=== PATIENT | male | born 1950 | race Caucasian/White ===

== ENCOUNTER 2018-06-04 17:03 | Inpatient (IN) ==
[2018-06-04] MEDS ORDERED: Sod Chloride 0.9% Inj 1,000 ML IV.CONT SCH (17:45)
--- NOTE | 2018-06-04 17:53 | ED ---
HPI General Chief Complaint: Fall Stated Complaint: Medical Time Seen by Provider: 06/04/18 17:14 Source: patient and EMS Mode of arrival: EMS Limitations: altered mental status History of Present Illness HPI Narrative: 68-year-old male complains a headache, facial. Patient had a syncopal episode and fell this afternoon. Patient was seen at [facility] in [place]. CT scan of the brain done at 1424 today shows small left temporal parietal subdural hematoma as well as multiple small hemorrhagic contusions involving the right frontal lobe. CT scan facial bones done today at 1427 shows no evidence of facial bone fracture. CT scan cervical spine done today at 1429 shows DJD changes. No acute fracture. Trauma surgeon was contacted [facility] patient was accepted to be transferred in [place] to [facility] for further treatment. Patient has history of hypertension , atrial fibrillation, CAD, CVA TIA stroke, diabetes, GERD, glaucoma, hyperlipidemia, MRSA, PAD, seizure, sleep apnea. Patient is on Pradaxa. Last dose of Pradaxa was this morning. Medical transfer note did not dictate the patient was treated for high blood pressure or Pradaxa reversal before transfer. complaint: fall Onset (ago): hour(s) Fall from: standing Fall witnessed: yes, by bystander Place fall occurred: home Loss of consciousness: yes Prolonged down time: no Symptoms prior to fall: none Location of injury: head and face Severity: moderate Quality: sharp Associated symptoms (after fall): headache Related Data Allergies Allergy/AdvReac Type Severity Reaction Status Date / Time No Known Allergies Allergy Verified 06/04/18 17:28 Review of Systems ROS: all other systems reviewed are negative [facility] Medical History Medical History Afib (Acute) Arthritis (Acute) Barretts esophagus (Acute) CAD (coronary artery disease) (Acute) CVA (cerebral vascular accident) (Acute) Chronic GERD (Acute) Chronic back pain (Acute) Depression (Acute) Diabetes (Acute) Glaucoma (Acute) Hyperlipemia (Acute) MRSA (methicillin resistant Staphylococcus aureus) (Acute) PAD (peripheral artery disease) (Acute) Seizure (Acute) Sleep apnea (Acute) Surgical History Surgical History H/O vascular surgery (Acute) History of esophagogastroduodenoscopy (EGD) (Acute) Social History Social History Substance History: No History of Abuse Second Hand Smoke Exposure: No Smoking Status: Former smoker Tobacco Type: Cigarettes How Often Do You Have a Drink Containing Alcohol: Never Recent Travel in [facility] within the Last 8 Weeks: No Recent Out of Country Travel within the Last 8 Weeks: No Immunization History Tetanus Immunization: Unable to Assess Hx Influenza Vaccine This Season: No Exam Narrative Exam Narrative: GENERAL: Well-nourished, well-developed patient. SKIN: Focused skin assessment warm/dry. HEAD: Normocephalic. Patient has a small area soft tissue defect laceration right temporal area frontal area. Soft tissue swelling ecchymosis right temporal and right forehead area. Mild ecchymosis tenderness over the nose. No active nose bleeding. EYES: No scleral icterus. No injection or drainage. NECK: Supple, trachea midline. No JVD or lymphadenopathy. CARDIOVASCULAR: Regular rate and rhythm without murmurs, gallops, or rubs. RESPIRATORY: Breath sounds equal bilaterally. No accessory muscle use. GASTROINTESTINAL: Abdomen soft, non-tender, nondistended. MUSCULOSKELETAL: No cyanosis, or edema. BACK: Nontender without obvious deformity. No CVA tenderness. Neurologic exam: Patient is awake and alert oriented 3. No obvious focal neurological deficit. Course Initial Documented Vital Signs Temperature 98 F 06/04/18 17:16 Pulse Rate 59 L 06/04/18 17:16 Respiratory Rate 18 06/04/18 17:16 Blood Pressure 217/98 H 06/04/18 17:16 Pulse Oximetry 98 06/04/18 17:16 Last Documented Vital Signs Temperature 98 F 06/04/18 17:16 Pulse Rate 59 L 06/04/18 17:16 Respiratory Rate 18 06/04/18 17:16 Blood Pressure 217/98 H 06/04/18 17:16 Pulse Oximetry 98 06/04/18 17:16 Medical Decision Making MDM Narrative Medical decision making narrative: 68-year-old male with intracranial hemorrhage from a fall today. Patient is on Pradaxa for history of TIA CVA in the past. Patient had CT scan of the brain done which show intracranial hemorrhage. Patient with transferred to [facility] for further treatment. The transfer was accepted by trauma surgeon Dr. Talavera. Upon arrival patient is hypotensive. Pradaxa reversal medication and Cardene drip ordered. Patient will be admitted to [facility]. Medical Screen Exam Complete: Yes Emergency Medical Condition: Yes Discharge Plan Discharge Disposition Patient Disposition: 30 Still Patient Discharge Details Diagnosis: Intracranial hemorrhage, Blunt trauma of face, Hypertension, uncontrolled Physicians Team ED Provider: Trenton Kim Primary Care Provider: UNKNOWN, Status ED Status: With Doctor
--- NOTE | 2018-06-04 17:58 | XR ---
EXAM DATE: 06/04/2018 5:53 PM EDT AGE/SEX: 68 years / Male INDICATIONS: Shortness of breath. CLINICAL DATA: This is the patient's initial encounter. Patient reports that signs and symptoms have been present for 1 day and indicates a pain score of 0/10. MEDICAL/SURGICAL HISTORY: . Unobtainable. . Unobtainable. COMPARISON: No prior exams available for comparison. FINDINGS: A single AP semierect portable view the chest was obtained and demonstrates mild cardiomegaly. Mild s treaky perihilar opacities are present with no focal consolidation or effusion. The bony thorax is in tact in appearance. There are overlying electrocardiogram leads. A equipment monitor phototypesetting device is projecte d in the left side of the chest. CONCLUSION: Mild cardiomegaly and mild streaky perihilar opacities which could represent possible early pulmonary edema. Electronically signed by: Jonh Cristobal MD 06/04/2018 5:57 PM EDT
--- NOTE | 2018-06-04 18:18 | CT ---
EXAM DATE: 06/04/2018 6:10 PM EDT AGE/SEX: 68 years / Male INDICATIONS: Fell, laceration right head. CLINICAL DATA: This is the patient's initial encounter. Patient reports that signs and symptoms have been present for 1 day and indicates a pain score of 5/10. MEDICAL/SURGICAL HISTORY: Cardiovascular disease. Cerebrovascular disease. Diabetes. . vascular s urgery RADIATION DOSE: 42.29 CTDI (mGy) COMPARISON: No prior exams available for comparison. TECHNIQUE: CT of the head without contrast. Using automated exposure control and adjustment of the mA and/or kV according to patient size, radiation dose was kept as low as reasonably achievable to ob tain optimal diagnostic quality images. DICOM format image data is available electronically for revi ew and comparison. FINDINGS: Cerebrum: The ventricles are normal for age. No evidence of midline shift or mass effect. There are several small punctate areas of high density hemorrhage in the right frontal lobe. The largest measu res approximately 6 mm in size. There is a small left subdural hematoma along the left parietal lobe measuring up to approximately 4 mm in diameter. There is a focal area of encephalomalacia involving t he right occipital lobe. There are additional areas of decreased ventilation involving the lower occi pital lobes bilaterally. Posterior Fossa: The cerebellum and brainstem are intact. The 4th ventricle is midline. The cerebe llopontine angle is unremarkable. Extracranial: The visualized portion of the orbits is intact. Skull: The calvaria is intact. No evidence of skull fracture. CONCLUSION: 1. Multiple small punctate areas of intraparenchymal hemorrhage in the high right frontal lobe. 2. Small left subdural hematoma along the left parietal lobe. 3. Old area of encephalomalacia involving the right occipital lobe as well as additional areas of de creased attenuation involving the lower occipital lobes. This likely is due to remote infarction. . Electronically signed by: Jonh Cristobal MD 06/04/2018 6:17 PM EDT
[2018-06-04] MEDS: niCARdipine Inj 25 MG in Sodium Chlor 0.9% Inj 240 ML IV.CONT PRN ×2 (18:22→22:57)
[2018-06-04] MEDS: IDARUCIZUMAB IV.SIG SCH ×2 (18:22→18:44)
[2018-06-04] MEDS ORDERED: Morphine Inj 4 MG/ML Vial IV.PUSH PRN (18:37)
--- NOTE | 2018-06-04 19:06 | MH ---
cc: Ta Talavera MD DATE OF ADMISSION: 06/04/2018 HISTORY OF PRESENT ILLNESS: This is a 68-year-old male who had a syncopal event, falling onto his face. He was taken to [facility] where he was evaluated and found to have a subdural hematoma. Trauma service was requested for transfer. The patient has a history of prior falls. He has had a stroke in the past and he is on Pradaxa. 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 Now, the patient complains of left eye blindness. He denies headache. He denies chest pain. He denies shortness of breath. He denies any numbness or tingling. The patient's CAT scan from outside revealed a subdural hematoma. Cervical spine CT was negative for fracture. PAST MEDICAL HISTORY: The patient has multiple medical problems including the above as well as coronary artery disease, type 2 diabetes, hyperlipidemia, atrial fibrillation. ALLERGIES: THE PATIENT HAS NO KNOWN DRUG ALLERGIES. MEDICATIONS: Multiple medications that can be obtained from the medical records. SOCIAL HISTORY: History of smoking. He does not currently smoke. No alcohol use. PHYSICAL EXAMINATION: GENERAL: The patient is lying in a stretcher, in no acute distress. HEENT: His pupils are full, equal and reactive. He has an abrasion to his right forehead. NECK: Nontender. Trachea is midline. No JVD. RESPIRATIONS: Clear. CARDIOVASCULAR: Regular. GASTROINTESTINAL: Soft, obese, nondistended. MUSCULOSKELETAL: No deformities. NEUROLOGIC: Nonfocal. BACK: No step-offs. IMAGING DATA: Repeat head CT shows multiple small punctate areas of intraparenchymal hemorrhage, small left subdural hematoma. ASSESSMENT AND PLAN: This is a patient status post fall with a traumatic brain injury on blood thinners. The patient is being admitted to [facility]. Neurosurgery has been consulted. The patient has been started on antihypertensives. Reversal for anticoagulation started. We will monitor neurological status as well as hemodynamics. MD MALISSA Thompson/jeramy , 06:49 PM , 06:56 PM
[2018-06-04 19:09] LABS: Baso % (Auto) 0.3 % (0.0-2.0); Eos # (Auto) 0.1 th/mm3 (0.0-0.4); Eos % (Auto) 0.8 % (0.0-4.0); Hematocrit 37.7 % (39.0-51.0); Hemoglobin 12.3 gm/dL (13.0-17.0); Lymph # (Auto) 0.5 th/mm3 (1.0-4.8); Lymph % (Auto) 6.7 % (9.0-44.0); Mean Corpuscular HGB Conc 32.6 % (32.0-36.0); Mean Platelet Volume 8.7 fL (7.0-11.0); Mono # (Auto) 0.4 th/mm3 (0.0-0.9); Mono % (Auto) 5.5 % (0.0-8.0); Neut # (Auto) 6.7 th/mm3 (1.8-7.7); Neut % (Auto) 86.7 % (16.0-70.0); Platelet Count 212 th/mm3 (150-450); Red Cell Distribution Width 15.6 % (11.6-17.2); White Blood Count 7.7 th/mm3 (4.0-11.0)
[2018-06-04 19:21] LABS: Activated Partial Thrombo Time 25.7 sec (24.3-30.1); INR 1.1 Ratio; Prothrombin Time 10.7 sec (9.8-11.6)
[2018-06-04 19:30] LABS: Albumin 3.1 g/dL (3.4-5.0); Anion Gap 8 meq/L (5-15); Aspartate Aminotransferase 13 U/L (15-37); Blood Urea Nitrogen 19 mg/dL (7-18); Calcium 8.5 mg/dL (8.5-10.1); Carbon Dioxide 22.4 meq/L (21.0-32.0); Chloride 114 meq/L (98-107); Glomerular Filtration Rate 52 mL/min (>89); Glucose,Random 57 mg/dL (74-106); Potassium 4.2 meq/L (3.5-5.1); Sodium 144 meq/L (136-145)
[2018-06-04 19:31] LABS: Alanine Aminotransferase 9 U/L (12-78)
[2018-06-04 19:33] LABS: Alkaline Phosphatase 74 U/L (45-117); Total Protein 7.7 g/dL (6.4-8.2)
--- NOTE | 2018-06-04 19:53 | P.CONNS ---
History of Present Illness Service: neurosurgery Consult date: 06/04/18 Reason for Consult: SDH Primary Care Provider: UNKNOWN Chief Complaint: headache History of Present Illness: 68 yo M with MMP (Afib, CAD, CVA, TIA on pradaxa, DM, HL, PAD) who presented to [facility] s/p syncopal event. Due to patients confusion, details obtained from chart review and report from OSH. Due to antiplatelet agent, patients agitation, and MOA, a head CT was obtained which demonstrated IPH/ contusion and SDH prompting transfer to [facility]. On arrival to [facility], patient was noted to have SBP >200's and therefore started on a nicardipine infusion. Patient also received pradaxa reversal agent. Patient is agitated and does not respond appropriately to questions. [facility] - History History Provided By: Patient - Medical History Medical History: Medical History (Last Reviewed 06/04/18 @ 17:48 by Trenton Kim MD) Afib Arthritis Barretts esophagus CAD (coronary artery disease) CVA (cerebral vascular accident) Chronic GERD Chronic back pain Depression Diabetes Glaucoma Hyperlipemia MRSA (methicillin resistant Staphylococcus aureus) PAD (peripheral artery disease) Seizure Sleep apnea - Surgical History Surgical History: Surgical History (Last Reviewed 06/04/18 @ 17:48 by Trenton Kim MD) H/O vascular surgery History of esophagogastroduodenoscopy (EGD) - Tobacco History Second Hand Smoke Exposure: No Tobacco Use In Past 30 Days: No Smoking Status: Former smoker Tobacco Type: Cigarettes - Alcohol History How Often Do You Have a Drink Containing Alcohol: Never - Substance Use History Substance History: No History of Abuse - Travel History Recent Travel in the [place] Within the Last 8 Weeks: No Recent Travel Out of the Country Within the Last 8 Weeks: No - Immunization History Tetanus Immunization: Unable to Assess Hx Influenza Vaccine This Season: No Medications and Allergies Active Medications: Active Medications Al Hydroxide/Mg Hydroxide (Milk Of Magnesia Liq) 30 ml PO Q6H PRN PRN Reason: CONSTIPATION Chlorhexidine Gluconate (Chlorhexidine 2% Cloth) 3 pack TOPICAL DAILY@0400 CAROLYNN Stop: 06/10/18 03:59 Chlorhexidine Gluconate (Chlorhexidine 2% Cloth) 3 pack TOPICAL DAILY@0400 PRN PRN Reason: Extra cloth needed Stop: 06/10/18 03:59 Docusate Sodium (Colace) 100 mg PO BID CAROLYNN Enalaprilat (Vasotec Inj) 1.25 mg IV.PUSH Q8H PRN PRN Reason: Blood pressure 180/95 Nicardipine HCl 25 mg/ Sodium (Chloride) 250 mls @ 50 mls/hr IV.CONT TITRATE PRN; Protocol PRN Reason: Per Protocol Last Admin: 06/04/18 18:22 Dose: 5 mg/hr, 50 mls/hr Sodium Chloride (Ns Inj) 1,000 mls @ 100 mls/hr IV.CONT .Q10H CAROLYNN Morphine Sulfate (Morphine Inj) 2 mg IV.PUSH Q1H PRN PRN Reason: Break through pain Ondansetron HCl (Zofran Inj) 4 mg IV.PUSH Q6H PRN PRN Reason: NAUSEA OR VOMITING Pantoprazole Sodium (Protonix Inj) 40 mg IV.PUSH Q24H CAROLYNN Sodium Chloride (Ns Flush) 2 ml IV.FLUSH UNSCH PRN PRN Reason: FLUSH AFTER USING IV ACCESS Allergies Allergy/AdvReac Type Severity Reaction Status Date / Time No Known Allergies Allergy Verified 06/04/18 17:28 Exam Vital signs: Vital Signs 06/04/18 17:16 06/04/18 18:29 06/04/18 18:36 Temperature 98 F Pulse Rate 59 L 67 66 Respiratory Rate 18 18 18 Blood Pressure 217/98 H 230/91 H 167/88 H Pulse Oximetry 98 98 06/04/18 18:48 06/04/18 18:59 Temperature Pulse Rate 65 69 Respiratory Rate 18 18 Blood Pressure 155/74 H 158/74 H Pulse Oximetry Intake & Output 06/04/18 06/04/18 06/05/18 06:59 18:59 06:59 Weight 117.9 kg Narrative: E4 bright agitated AO x self only confused Follows commands in all extremities 5/5 strength in the upper and lower extremities 2/4 reflexes throughout sensation intact Results - Laboratory Findings CBC and BMP: 06/04/18 18:03 06/04/18 18:03 Abnormal lab findings: Abnormal Labs 06/04/18 06/04/18 18:03 18:03 RBC 4.10 L Hgb 12.3 L Hct 37.7 L Neut % (Auto) 86.7 H Lymph % (Auto) 6.7 L Lymph # (Auto) 0.5 L Chloride 114 H BUN 19 H Creatinine 1.36 H Estimated GFR 52 L Random Glucose 57 L AST 13 L ALT 9 L Albumin 3.1 L Assessment and Plan - Plan Imaging: Ct head consistent with left sided small 5 mm acute SDH with multiple small foci of intraparenchymal hemorrhage/contusions mostly to the right frontal lobe A/P: 68 yo M on pradaxa s/p fall with IPH/contusions/SDH. Pradaxa reversed -no acute neurosurgical intervention at this time -recommend q1 hr neuro checks with close monitoring -Keppra for 7 days for seizure prophylaxis -Would obtain am head CT to evaluate for evolution -syncope workup
--- NOTE | 2018-06-04 21:16 | P.PNCC ---
Subjective Brief History: History of Present Illness HPI Narrative: 68-year-old male complains a headache, facial. Patient had a syncopal episode and fell this afternoon. Patient was seen at [facility] in [place]. CT scan of the brain done this afternoon shows small left temporal parietal subdural hematoma as well as multiple small hemorrhagic contusions involving the right frontal lobe. CT scan facial bones done today shows no evidence of facial bone fracture. Request was made to transfer patient to our institution and it was readily accepted. Patient arrives awake alert but somewhat confused and disoriented motorically fully intact Patient is on Pradaxa for atrial fibrillation he was immediately given Praxbind , for reversal In addition patient is significantly hypertensive and he has been started on nicardipine drip and restarted on carvedilol and levodopa Will have repeat CT scan tomorrow and also cardiac evaluation and carotid ultrasound Past medical history is that of Coronary artery disease Chronic atrial fibrillation controlled and on anticoagulants Hypertension Past myocardial infarction Diabetes mellitus Previous CVA and syncopal episodes History of renal insufficiency Markham's esophagus Objective Vital Signs / I&O: Vital Signs 06/04/18 17:16 06/04/18 18:29 06/04/18 18:36 Temperature 98 F Pulse Rate 59 L 67 66 Respiratory Rate 18 18 18 Blood Pressure 217/98 H 230/91 H 167/88 H Pulse Oximetry 98 98 06/04/18 18:48 06/04/18 18:59 06/04/18 20:00 Temperature Pulse Rate 65 69 Respiratory Rate 18 18 Blood Pressure 155/74 H 158/74 H Pulse Oximetry 98 Intake & Output 06/04/18 06/04/18 06/05/18 06:59 18:59 06:59 Weight 117.9 kg Result Diagrams: 06/04/18 18:03 06/04/18 18:03 Imaging: Impressions Chest X-Ray 06/04/18 17:33 CONCLUSION: Mild cardiomegaly and mild streaky perihilar opacities which could represent possible early pulmonary edema. Head CT 06/04/18 17:33 CONCLUSION: 1. Multiple small punctate areas of intraparenchymal hemorrhage in the high right frontal lobe. 2. Small left subdural hematoma along the left parietal lobe. 3. Old area of encephalomalacia involving the right occipital lobe as well as additional areas of decreased attenuation involving the lower occipital lobes. This likely is due to remote infarction. .
[2018-06-04] MEDS: Docusate Sodium 100 MG Capsule PO SCH (21:25)
[2018-06-04] MEDS: Pantoprazole Inj 40 MG Vial IV.PUSH SCH (21:34)
[2018-06-04] MEDS: Sod Chloride 0.9% Inj 1,000 ML IV.CONT SCH (21:34)
--- NOTE | 2018-06-04 22:37 | US ---
EXAM DATE: 06/04/2018 10:32 PM EDT AGE/SEX: 68 years / Male INDICATIONS: Syncope. CLINICAL DATA: This is the patient's initial encounter. Patient reports that signs and symptoms have been present for 1 day and indicates a pain score of 0/10. MEDICAL/SURGICAL HISTORY: Gastroesophageal reflux disease. Diabetes. Atrial fibrillation. Arth ritis. Coronary artery disease. Cerebral vascular accident. Hyperlipidemia. MRSA. Peripheral artery d isease. Seizure. Sleep apnea. . Vascular surgery. Esophagogastroduodenoscopy. COMPARISON: No prior exams available for comparison. VELOCITY PARAMETERS: ICA/CCA Ratio: Right 1.7 , Left 1.1 ICA: Right 98 cm/sec, Left 83 cm/sec CCA: Right 57 cm/sec, Left 78 cm/sec ECA: Right 86 cm/sec, Left 91 cm/sec Vertebral: Right Not visualized. cm/sec absent, Left 60 cm/sec antegrade FINDINGS: Sedation was suboptimal secondary to the patient's body habitus. The right vertebral arter y could not be visualized. Right Carotid: Mild arteriosclerotic plaque is visualized.The waveforms are within normal limits. Left Carotid: Moderate arteriosclerotic plaque is visualized. The waveforms are within normal limits . Other: The right vertebral artery could not be visualized. CONCLUSION: 1. Right Internal Carotid Artery: Mild atherosclerotic plaque with less than 50% diameter stenosis. 2. Left Internal Carotid Artery: Mild atherosclerotic plaque with less than diameter stenosis. 3. Nonvisualization of the right vertebral artery. Occlusion is not excluded. Electronically signed by: Jonh Cristobal MD 06/04/2018 10:36 PM EDT
[2018-06-05] MEDS: niCARdipine Inj 25 MG in Sodium Chlor 0.9% Inj 240 ML IV.CONT PRN ×5 (03:24→22:57)
[2018-06-05] MEDS: Chlorhexidine Gluconate 2% 1 Pack (2 Cloths) TOPICAL SCH (03:54)
[2018-06-05] MEDS ORDERED: Chlorhexidine Gluconate 2% 1 Pack (2 Cloths) TOPICAL PRN (04:00)
[2018-06-05 04:54] LABS: Baso % (Auto) 0.3 % (0.0-2.0); Eos % (Auto) 0.2 % (0.0-4.0); Hematocrit 37.8 % (39.0-51.0); Hemoglobin 12.3 gm/dL (13.0-17.0); Lymph # (Auto) 0.7 th/mm3 (1.0-4.8); Lymph % (Auto) 8.2 % (9.0-44.0); Mean Corpuscular HGB Conc 32.7 % (32.0-36.0); Mean Corpuscular Hemoglobin 29.8 pg (27.0-34.0); Mean Corpuscular Volume 91.4 fL (80.0-100.0); Mean Platelet Volume 8.4 fL (7.0-11.0); Mono # (Auto) 0.5 th/mm3 (0.0-0.9); Mono % (Auto) 5.6 % (0.0-8.0); Neut # (Auto) 7.1 th/mm3 (1.8-7.7); Neut % (Auto) 85.7 % (16.0-70.0); Platelet Count 194 th/mm3 (150-450); Red Blood Count 4.13 mil/mm3 (4.50-5.90); Red Cell Distribution Width 15.4 % (11.6-17.2); White Blood Count 8.3 th/mm3 (4.0-11.0)
[2018-06-05 05:21] LABS: Alanine Aminotransferase 12 U/L (12-78); Alkaline Phosphatase 77 U/L (45-117); Anion Gap 12 meq/L (5-15); Aspartate Aminotransferase 13 U/L (15-37); Blood Urea Nitrogen 20 mg/dL (7-18); Calcium 8.2 mg/dL (8.5-10.1); Carbon Dioxide 18.3 meq/L (21.0-32.0); Chloride 113 meq/L (98-107); Glomerular Filtration Rate 56 mL/min (>89); Glucose,Random 190 mg/dL (74-106); Potassium 3.6 meq/L (3.5-5.1); Sodium 143 meq/L (136-145); Total Protein 7.6 g/dL (6.4-8.2)
[2018-06-05] MEDS ORDERED: Dextrose 50% in Water 50 ML Vial IV.PUSH PRN (07:24)
[2018-06-05] MEDS: Sod Chloride 0.9% Inj 1,000 ML IV.CONT SCH ×2 (08:02→17:47)
--- NOTE | 2018-06-05 08:31 | P.PNNS ---
Subjective Interval history: patient confused. does not report any issues Physical Exam Vital signs: Vital Signs 06/04/18 17:16 06/04/18 18:29 06/04/18 18:36 Temperature 98 F Pulse Rate 59 L 67 66 Respiratory Rate 18 18 18 Blood Pressure 217/98 H 230/91 H 167/88 H Pulse Oximetry 98 98 06/04/18 18:48 06/04/18 18:59 06/04/18 20:00 Temperature Pulse Rate 65 69 Respiratory Rate 18 18 Blood Pressure 155/74 H 158/74 H Pulse Oximetry 98 06/04/18 21:00 06/04/18 22:00 06/04/18 23:00 Temperature 98.1 F 98.2 F 98.2 F Pulse Rate 73 73 74 Respiratory Rate 16 17 17 Blood Pressure 194/89 H 145/70 H 173/79 H Pulse Oximetry 06/05/18 00:00 06/05/18 04:00 Temperature 98.3 F 98.4 F Pulse Rate 73 75 Respiratory Rate 18 19 Blood Pressure 150/70 H 157/74 H Pulse Oximetry Intake & Output 06/04/18 06/05/18 06/05/18 18:59 06:59 18:59 Intake Total 605 / 605 1250 / 1250 Output Total 925 / 925 Balance -320 / -320 1250 / 1250 Weight 117.9 kg 121.4 kg Intake: IV 605 / 605 1250 / 1250 NS Inj 1,000 ML @ 100 mls/hr IV 1000 / 1000 .CONT .Q10H CAROLYNN Rx#:[id number] Cardene Inj 25 MG In NS Inj 240 500 / 500 250 / 250 ML @ 5 MG/HR 50 mls/hr IV.CONT TITRATE PRN Rx#:[id number] Keppra Inj 500 MG In NS Inj 100 105 / 105 ML @ 400 mls/hr IV.SIG Q12H CAROLYNN Rx#:[id number] Output: Urine Amount (Catheter) 925 / 925 Indwelling Urethral Catheter 925 / 925 Other: Weight On Admission 117.9 kg Narrative: E4 confused AOx hospital only FC x4 5/5 strength throughout unable to test drift - Urinary Catheter Management Indwelling Urethral Catheter Cath placed during this visit: no Assessment and Plan - Plan Imaging: Ct head consistent with left sided small 5 mm acute SDH with multiple small foci of intraparenchymal hemorrhage/contusions mostly to the right frontal lobe A/P: 68 yo M on pradaxa s/p fall with IPH/contusions/SDH -pradaxa reversed -no acute neurosurgical intervention at this time -recommend q1 hr neuro checks with close monitoring -Keppra for 7 days for seizure prophylaxis -pending am head CT to evaluate for evolution -syncope workup
--- NOTE | 2018-06-05 10:03 | CT ---
EXAM DATE: 06/05/2018 9:53 AM EDT AGE/SEX: 68 years / Male INDICATIONS: Follow up head trauma, intracranial hemorrhage. CLINICAL DATA: This is the patient's subsequent encounter. Patient reports that signs and symptoms h ave been present for 2 days and indicates a pain score of Nonresponsive. MEDICAL/SURGICAL HISTORY: Hypertension. Gastroesophageal reflux disease. Cardiovascular disease. Seizures, arthritis, diabetes. None. RADIATION DOSE: 56.35 CTDI (mGy) COMPARISON: [place], CT HEAD W/O CONTRAST, 06/04/2018. . TECHNIQUE: CT of the head without contrast. Using automated exposure control and adjustment of the mA and/or kV according to patient size, radiation dose was kept as low as reasonably achievable to ob tain optimal diagnostic quality images. DICOM format image data is available electronically for revi ew and comparison. FINDINGS: Cerebrum: Numerous small hemorrhages along the mcnally-white junction of the right frontal and parietal lobes are slightly larger and more conspicuous in appearance. There is no significant increase in ma ss effect or edema. Small left-sided subdural hematoma along the frontal and temporal lobes is again noted. Significant decrease in hyperdensity of the collection is noted. There is no evidence of incre asing size or mass effect. Midline structures remain well preserved. Bilateral occipital encephalomalacia is again noted. Posterior Fossa: Old right cerebellar infarct is identified. Brainstem and cerebellum are otherwise stable. Extracranial: The visualized portion of the orbits is intact. Skull: The calvaria is intact. No evidence of skull fracture. CONCLUSION: 1. Increasing conspicuity and size of multiple small hemorrhages along the mcnally-white junction of th e right frontal and parietal lobes without evidence of increasing mass effect or edema. Findings are characteristic of white matter shear injury. 2. Decreasing density of small left cerebral subdural hematoma which is otherwise stable without tracey dence of interval enlargement or mass effect. 3. Stable old bilateral occipital infarcts and right cerebellar infarct. . Electronically signed by: Uli Jaime MD 06/05/2018 10:01 AM EDT
[2018-06-05] MEDS: Timolol 0.5% Drops 5 ML Bottle EACH EYE SCH ×2 (10:47→21:07)
[2018-06-05] MEDS: Brimonidine 0.2% Opth Drops 5 ML Bottle EACH EYE SCH ×2 (10:50→21:07)
[2018-06-05] MEDS: Carvedilol 12.5 MG Tablet PO SCH ×2 (10:55→21:08)
[2018-06-05] MEDS: Docusate Sodium 100 MG Capsule PO SCH ×2 (10:56→21:09)
--- NOTE | 2018-06-05 12:40 | P.PNCC ---
Subjective Brief History: History of Present Illness HPI Narrative: 68-year-old male complains a headache, facial. Patient had a syncopal episode and fell this afternoon. Patient was seen at [facility] in [place]. CT scan of the brain done this afternoon shows small left temporal parietal subdural hematoma as well as multiple small hemorrhagic contusions involving the right frontal lobe. CT scan facial bones done today shows no evidence of facial bone fracture. Request was made to transfer patient to our institution and it was readily accepted. Patient arrives awake alert but somewhat confused and disoriented motorically fully intact Patient is on Pradaxa for atrial fibrillation he was immediately given Praxbind , for reversal In addition patient is significantly hypertensive and he has been started on nicardipine drip and restarted on carvedilol and levodopa Will have repeat CT scan tomorrow and also cardiac evaluation and carotid ultrasound Past medical history is that of Coronary artery disease Chronic atrial fibrillation controlled and on anticoagulants Hypertension Past myocardial infarction Diabetes mellitus Previous CVA and syncopal episodes History of renal insufficiency Markham's esophagus 24 Hour Review/Hospital Course: 06/05/2018 Unfortunate gentleman who fell at home sustained the right frontal and left parietal contusions with some left subarachnoid hemorrhage In addition patient has chronic A. fib or junctional rhythm controlled by calcium channel blockers and beta blockers Was on Pradaxa and this was reversed with Praxabind. Patient is awake alert but disoriented in time space and person Apparently prior to this he had some degree of dementia Motorically patient is fully intact has full strength in lower and upper extremities and is trying fairly aggressively to get out of bed Repeat CT scan pending Hemodynamically stable with junctional controlled rhythm Hypertensive had to be placed on nicardipine drip. Keep pressure under 160 mmHg Reinstitute all his antihypertensives from home and probably will place patient on small dose Catapres in order to wean the nicardipine Bilateral breath sounds good pulmonary excursion however patient has been in bed and it is coughing up copious secretions Abdomen soft will restart on diet after evaluation by speech therapy Plan Control of hemodynamic values including cardiac rhythm and blood pressure Out of bed aggressive pulmonary toilet Aggressive PT OT Placement in next 24-40 hours will be necessary Objective Vital Signs / I&O: Vital Signs 06/04/18 17:16 06/04/18 18:29 06/04/18 18:36 Temperature 98 F Pulse Rate 59 L 67 66 Respiratory Rate 18 18 18 Blood Pressure 217/98 H 230/91 H 167/88 H Pulse Oximetry 98 98 06/04/18 18:48 06/04/18 18:59 06/04/18 20:00 Temperature Pulse Rate 65 69 Respiratory Rate 18 18 Blood Pressure 155/74 H 158/74 H Pulse Oximetry 98 06/04/18 21:00 06/04/18 22:00 06/04/18 23:00 Temperature 98.1 F 98.2 F 98.2 F Pulse Rate 73 73 74 Respiratory Rate 16 17 17 Blood Pressure 194/89 H 145/70 H 173/79 H Pulse Oximetry 06/05/18 00:00 06/05/18 04:00 06/05/18 08:00 Temperature 98.3 F 98.4 F Pulse Rate 73 75 Respiratory Rate 18 19 Blood Pressure 150/70 H 157/74 H Pulse Oximetry 97 Intake & Output 06/04/18 06/05/18 06/05/18 18:59 06:59 18:59 Intake Total 605 / 605 1500 / 1500 Output Total 925 / 925 Balance -320 / -320 1500 / 1500 Weight 117.9 kg 121.4 kg Intake: IV 605 / 605 1500 / 1500 NS Inj 1,000 ML @ 100 mls/hr IV 1000 / 1000 .CONT .Q10H CAROLYNN Rx#:[id number] Cardene Inj 25 MG In NS Inj 240 500 / 500 500 / 500 ML @ 5 MG/HR 50 mls/hr IV.CONT TITRATE PRN Rx#:[id number] Keppra Inj 500 MG In NS Inj 100 105 / 105 ML @ 400 mls/hr IV.SIG Q12H CAROLYNN Rx#:[id number] Output: Urine Amount (Catheter) 925 / 925 Indwelling Urethral Catheter 925 / 925 Other: Weight On Admission 117.9 kg Result Diagrams: 06/05/18 04:07 06/05/18 04:07 Imaging: Impressions Carotid Doppler Study 06/04/18 00:00 CONCLUSION: 1. Right Internal Carotid Artery: Mild atherosclerotic plaque with less than 50 % diameter stenosis. 2. Left Internal Carotid Artery: Mild atherosclerotic plaque with less than diameter stenosis. 3. Nonvisualization of the right vertebral artery. Occlusion is not excluded. Chest X-Ray 06/04/18 17:33 CONCLUSION: Mild cardiomegaly and mild streaky perihilar opacities which could represent possible early pulmonary edema. Head CT 06/04/18 17:33 CONCLUSION: 1. Multiple small punctate areas of intraparenchymal hemorrhage in the high right frontal lobe. 2. Small left subdural hematoma along the left parietal lobe. 3. Old area of encephalomalacia involving the right occipital lobe as well as additional areas of decreased attenuation involving the lower occipital lobes. This likely is due to remote infarction. . Head CT 06/05/18 08:14 CONCLUSION: 1. Increasing conspicuity and size of multiple small hemorrhages along the mcnally -white junction of the right frontal and parietal lobes without evidence of increasing mass effect or edema. Findings are characteristic of white matter shear injury. 2. Decreasing density of small left cerebral subdural hematoma which is otherwise stable without evidence of interval enlargement or mass effect. 3. Stable old bilateral occipital infarcts and right cerebellar infarct. . 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 Keep pressure under 160 mmHg Reinstitute all his antihypertensives from home and probably will place patient on small dose Catapres in order to wean the nicardipine Pulmonary/Respiratory: Bilateral breath sounds good pulmonary excursion however patient has been in bed and it is coughing up copious secretions Abdomen/GI Nutrition: Abdomen soft will restart on diet after evaluation by speech therapy Renal/I&O: Renal function preserved although patient has some history of renal insufficiency which is not inconsistent with diabetes mellitus Assessment and Plan Attestation: Plan Control of hemodynamic values including cardiac rhythm and blood pressure Out of bed aggressive pulmonary toilet Aggressive PT OT Placement in next 24-40 hours will be necessary Critical care 34 minutes
[2018-06-05] MEDS: Insulin NovoLOG Aspart Correctional Sugar Inj SQ SCH ×2 (12:44→17:59)
[2018-06-05] MEDS: Lacosamide 100 MG Tablet PO SCH ×2 (12:49→21:09)
[2018-06-05] MEDS ORDERED: Morphine Inj 4 MG/ML Vial IV.PUSH PRN (13:02)
--- NOTE | 2018-06-05 15:10 | MB ---
cc: Vishnu Rendon DO DATE: 06/05/2018 REASON FOR CONSULTATION: Syncopal episode. 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 He was transferred to [place] due to the trauma. He is unable to give any information about the event and so I spoke with his significant other, Swati about it. Apparently, he had gotten out of a car and she came around to help him walk. He is blind in his left eye and has difficulty with seeing anything, and so he told him there was a curb ahead. At that time, she believed he was standing still and then fell over forward, hitting his face. He does not believe it was a mechanical fall at that time. He denied any events before, during, or after the syncopal episode. In speaking to her, he said that he has fallen 8-12 times over the past week. He has also had hallucinations for the past couple of weeks where he was petting a cat that was not there, as well as stomping on zombies. PAST MEDICAL HISTORY: 1. Atrial fibrillation. 2. Arthritis. 3. CAD. 4. GERD. 5. History of CVA with residual left eye blindness. 6. Depression. 7. Diabetes. 8. Glaucoma. 9. Hyperlipidemia. 10. PAD. 11. Seizures. 12. Sleep apnea. PAST SURGICAL HISTORY: 1. Loop recorder placement. 2. EGD. ALLERGIES: NO KNOWN DRUG ALLERGIES. MEDICATIONS: 1. Zocor 20 mg daily. 2. Acetazolamide 500 mg b.i.d. 3. Vimpat 200 mg b.i.d. 4. NPH 70/30, 35 units b.i.d. 5. Metformin 500 mg b.i.d. 6. Lasix 20 mg daily. 7. Cymbalta 30 mg daily. 8. Coreg 25 mg b.i.d. 9. Carbidopa/levodopa 25/250 daily. 10. Omeprazole 20 mg daily. 11. Cozaar 50 mg b.i.d. 12. Pradaxa 150 mg b.i.d. FAMILY HISTORY: Denies premature coronary artery disease or sudden cardiac within the family. SOCIAL HISTORY: The patient previously smoked but has not smoked recently. Denies alcohol or drug abuse. REVIEW OF SYSTEMS: Fourteen systems were reviewed including osteopathic. Pertinent positives and negatives above, otherwise negative. PHYSICAL EXAMINATION: VITAL SIGNS: Temperature 98.4, heart rate 75, blood pressure 157/74, respirations 19, pulse oximetry 97% on room air. GENERAL: The patient is currently stable, but somewhat lethargic. He arouses to questioning. He does have some disorientation. HEENT: Extraocular muscles intact. Mucous membranes moist. NECK: Supple. No JVD at 45 degrees. No carotid bruits heard bilaterally. Carotid upstroke is brisk in nature. HEART: Regular rate and rhythm. Positive first and second heart sounds with no noted murmurs, gallops or rubs. LUNGS: Clear to auscultation bilaterally. No wheezes, rales or rhonchi. ABDOMEN: Soft, nontender, nondistended. No organomegaly noted. EXTREMITIES: Show no clubbing, cyanosis or edema. Femoral and distal pulses are intact bilaterally. NEUROLOGICAL: The patient is somewhat lethargic and disoriented. Appears to move all extremities without complication. SKIN: Warm, dry and intact. OSTEOPATHIC: No kyphoscoliosis, lordosis or paraspinal tender points. LABORATORY DATA: Hemoglobin 12.3, hematocrit 37.8, platelets 194. Potassium 3.6, BUN 20, creatinine 1.27. IMPRESSIONS: 1. Syncopal episode. 2. Intraparenchymal hemorrhage on the high right frontal lobe with a small left subdural hematoma along the left parietal lobe. 3. History of atrial fibrillation, on Pradaxa therapy. 4. Coronary artery disease. 5. History of cerebrovascular accident with left-sided vision loss. 6. Diabetes. 7. Peripheral artery disease. 8. Sleep apnea. 9. Recent significant amount of falls. 10. Recent hallucinations. RECOMMENDATIONS: 1. Mr. Christopher had a syncopal episode, which led to his intracranial hemorrhage. 2. His Pradaxa has since been reversed. 3. Overall, I think that with this fall, as well as previous falls, that Pradaxa should be stopped altogether. For now, we will stay off all antiplatelet and anticoagulation therapy. Overall, when recommended by neurosurgery would consider being placed back on aspirin 81 mg daily due to his coronary artery disease, previous CVA, atrial fibrillation and peripheral artery disease. 4. We will check a 2-D echo to look for possible causes of syncope, although I believe that the chances of finding something are overall low. 5. He does have a loop recorder placed due to his previous syncopal episodes, but it is around 4.5 years old. Will consider placement of a new loop recorder due to syncopal episodes. 6. Heart rate sinus rhythm and appears controlled. 7. He was hypertensive since being here, but currently controlled better, now is currently off Cardene drip. 8. We will make sure that he is on his previous cardiac medications. 9. Upon discharge, he will follow up with Dr. Syed Benítez, his munitions worker. Thank you for allowing me to see Tyson Christopher. If there are any questions, please do not hesitate to call. DO MARY Montague/aneesh , 02:15 PM , 02:30 PM [email or web address]
[2018-06-05] MEDS: Pantoprazole Inj 40 MG Vial IV.PUSH SCH (21:06)
--- NOTE | 2018-06-05 21:55 | XR ---
EXAM DATE: 06/05/2018 9:52 PM EDT AGE/SEX: 68 years / Male INDICATIONS: Right proximal humerus pain after fall. CLINICAL DATA: This is the patient's initial encounter. Patient reports that signs and symptoms have been present for 3 days and indicates a pain score of 10/10. MEDICAL/SURGICAL HISTORY: None. None. COMPARISON: No prior exams available for comparison. FINDINGS: Bony structures are intact and in normal alignment. Osseous density is normal. Soft tissues are unre markable. No radiopaque foreign bodies seen. CONCLUSION: Negative exam with no acute fracture. Electronically signed by: Jonh Crsitobal MD 06/05/2018 9:53 PM EDT
--- NOTE | 2018-06-05 21:57 | XR ---
EXAM DATE: 06/05/2018 9:50 PM EDT AGE/SEX: 68 years / Male INDICATIONS: Left hand, thumb pain after fall. CLINICAL DATA: This is the patient's initial encounter. Patient reports that signs and symptoms have been present for 3 days and indicates a pain score of 10/10. MEDICAL/SURGICAL HISTORY: None. None. COMPARISON: No prior exams available for comparison. FINDINGS: AP, lateral and oblique views of the left hand were obtained and demonstrate flexion deformity at the level of the fourth proximal phalangeal joint. There is no fracture deformity involving the base of the fourth middle phalanx. No definite acute fracture or malalignment is identified. There is diffuse osteopenia. There are mild to moderate degenerative changes involving the interphalangeal joints. So ft tissue prominence over the thumb. CONCLUSION: 1. No acute fracture or malalignment. 2. Fracture deformity involving the base of the fourth middle phalanx. 3. Osteopenia and osteoarthritic change. Electronically signed by: Jonh Cristobal MD 06/05/2018 9:56 PM EDT
--- NOTE | 2018-06-05 21:57 | XR ---
EXAM DATE: 06/05/2018 9:51 PM EDT AGE/SEX: 68 years / Male INDICATIONS: Right shoulder pain after fall. CLINICAL DATA: This is the patient's initial encounter. Patient reports that signs and symptoms have been present for 3 days and indicates a pain score of 10/10. MEDICAL/SURGICAL HISTORY: None. None. COMPARISON: [facility], HUMERUS RIGHT MIN 2V, 06/05/2018. . FINDINGS: Bony structures are intact and in normal alignment. Joints are intact without dislocation or signifi cant arthropathy. There are mild degenerative changes in the acromioclavicular joint. Osseous density is normal. Soft tissues are unremarkable. No radiopaque foreign bodies seen. CONCLUSION: No acute fracture or malalignment. Degenerative changes are present in the acromioclavicular joint. Electronically signed by: Jonh Cristobal MD 06/05/2018 9:56 PM EDT
[2018-06-06] MEDS: Insulin NovoLOG Aspart Correctional Sugar Inj SQ SCH ×4 (00:10→17:33)
[2018-06-06] MEDS: Chlorhexidine Gluconate 2% 1 Pack (2 Cloths) TOPICAL SCH (03:30)
[2018-06-06] MEDS: niCARdipine Inj 25 MG in Sodium Chlor 0.9% Inj 240 ML IV.CONT PRN ×2 (04:11→09:08)
[2018-06-06 05:49] LABS: Baso % (Auto) 0.5 % (0.0-2.0); Eos # (Auto) 0.1 th/mm3 (0.0-0.4); Eos % (Auto) 1.2 % (0.0-4.0); Hematocrit 34.6 % (39.0-51.0); Hemoglobin 11.3 gm/dL (13.0-17.0); Lymph # (Auto) 0.7 th/mm3 (1.0-4.8); Lymph % (Auto) 9.3 % (9.0-44.0); Mean Corpuscular HGB Conc 32.5 % (32.0-36.0); Mean Corpuscular Hemoglobin 29.8 pg (27.0-34.0); Mean Corpuscular Volume 91.7 fL (80.0-100.0); Mean Platelet Volume 8.4 fL (7.0-11.0); Mono # (Auto) 0.5 th/mm3 (0.0-0.9); Mono % (Auto) 6.8 % (0.0-8.0); Neut % (Auto) 82.2 % (16.0-70.0); Platelet Count 183 th/mm3 (150-450); Red Blood Count 3.77 mil/mm3 (4.50-5.90); Red Cell Distribution Width 14.9 % (11.6-17.2); White Blood Count 7.3 th/mm3 (4.0-11.0)
[2018-06-06 06:24] LABS: Albumin 2.7 g/dL (3.4-5.0); Anion Gap 12 meq/L (5-15); Aspartate Aminotransferase 18 U/L (15-37); Blood Urea Nitrogen 20 mg/dL (7-18); Calcium 8.1 mg/dL (8.5-10.1); Carbon Dioxide 16.1 meq/L (21.0-32.0); Chloride 114 meq/L (98-107); Glomerular Filtration Rate 59 mL/min (>89); Glucose,Random 230 mg/dL (74-106); Potassium 3.6 meq/L (3.5-5.1); Sodium 142 meq/L (136-145)
[2018-06-06 06:28] LABS: Alanine Aminotransferase 14 U/L (12-78); Alkaline Phosphatase 70 U/L (45-117); Total Protein 6.7 g/dL (6.4-8.2)
[2018-06-06] MEDS: Lacosamide 100 MG Tablet PO SCH ×2 (09:00→21:03)
[2018-06-06] MEDS: Furosemide 20 MG Tablet PO SCH (09:00)
[2018-06-06] MEDS: Carvedilol 12.5 MG Tablet PO SCH ×2 (09:00→21:01)
[2018-06-06] MEDS: Docusate Sodium 100 MG Capsule PO SCH ×2 (09:00→21:01)
[2018-06-06] MEDS: Brimonidine 0.2% Opth Drops 5 ML Bottle EACH EYE SCH ×2 (09:01→21:00)
[2018-06-06] MEDS: Timolol 0.5% Drops 5 ML Bottle EACH EYE SCH ×2 (09:01→21:03)
--- NOTE | 2018-06-06 09:02 | P.PNNS ---
Subjective Interval history: More awake this morning Physical Exam Vital signs: Vital Signs 06/05/18 09:00 06/05/18 12:00 06/05/18 16:00 Temperature 98.0 F 97.7 F Pulse Rate 89 74 74 Respiratory Rate 23 23 Blood Pressure 142/65 H 156/71 H Pulse Oximetry 06/05/18 20:00 06/05/18 20:30 06/06/18 00:00 Temperature 98.0 F 98.0 F Pulse Rate 70 72 Respiratory Rate 25 H 22 Blood Pressure 139/65 144/66 H Pulse Oximetry 97 06/06/18 04:00 06/06/18 08:27 Temperature 98.2 F Pulse Rate 72 Respiratory Rate 15 Blood Pressure 158/72 H Pulse Oximetry 97 Intake & Output 06/05/18 06/06/18 06/06/18 18:59 06:59 18:59 Intake Total 2950 / 2950 500 / 500 1000 / 1000 Output Total 850 / 850 665 / 665 Balance 2100 / 2100 -165 / -165 1000 / 1000 Weight 118.3 kg Intake: IV 2750 / 2750 500 / 500 1000 / 1000 NS Inj 1,000 ML @ 50 mls/hr IV. 1999 / 1999 1000 / 1000 CONT .Q20H CAROLYNN Rx#:[id number] Cardene Inj 25 MG In NS Inj 240 750 / 750 500 / 500 ML @ 5 MG/HR 50 mls/hr IV.CONT TITRATE PRN Rx#:[id number] Oral 200 / 200 Output: Urine 850 / 850 665 / 665 Other: # Voids 1 # Bowel Movements 0 Narrative: E5 confused [facility], year now, recalled that he fell and he's from [facility] x4 5/5 strength throughout - Urinary Catheter Management Indwelling Urethral Catheter Cath placed during this visit: no Assessment and Plan - Plan Imaging: Ct head consistent with left sided small 5 mm acute SDH with multiple small foci of intraparenchymal hemorrhage/contusions mostly to the right frontal lobe A/P: 68 yo M on pradaxa s/p fall with IPH/contusions/SDH (06/04) -- HD#3 -pradaxa reversed -repeat CT's 06/05 (cp admit 06/04) show expected evolution of frontal contusions- - all small and stable - no neurosurgical intervention -recommend q2 hr neuro checks with close monitoring -relax blood pressure restriction to SBP 160 today then d/c in coordination with Trauma service -Keppra for 7 days for seizure prophylaxis -PT/OT mobilize, activity as tolerated (up to chair) -- can transfer to floor likely tomorrow 06/07/18 -syncope workup
--- NOTE | 2018-06-06 11:01 | P.NPEVAL ---
Patient History - Record/History Review Reason for Referral: The patient is a 68 year old right handed male status post traumatic brain injury secondary to a fall sustained on 06/04/2018. Head CT showed small left temporoparietal SDH and multiple small hemorrhagic contusions of the right frontal lobe. This patient has a past medical history of HTN, Afib, CAD, CVA, TIA, DM, GERD, hyperlipidemia, PAD and PADILLA. He is referred for baseline neurobehavioral status examination per trauma protocol to assess cognitive, behavioral and emotional aspects of the injury and to provide treatment recommendations. [facility] - History History Provided By: Patient - Medical History Medical History: Medical History (Last Reviewed 06/05/18 @ 13:38 by Shane Steinberg) Afib Arthritis Barretts esophagus CAD (coronary artery disease) CVA (cerebral vascular accident) Chronic GERD Chronic back pain Depression Diabetes Glaucoma Hyperlipemia MRSA (methicillin resistant Staphylococcus aureus) PAD (peripheral artery disease) Seizure Sleep apnea - Surgical History Surgical History: Surgical History (Last Reviewed 06/05/18 @ 13:38 by Shane Steinberg) H/O vascular surgery History of esophagogastroduodenoscopy (EGD) - Tobacco History Second Hand Smoke Exposure: No Tobacco Use In Past 30 Days: No Smoking Status: Former smoker Tobacco Type: Cigarettes - Alcohol History How Often Do You Have a Drink Containing Alcohol: Never - Substance Use History Substance History: No History of Abuse - Travel History Recent Travel in the [place] Within the Last 8 Weeks: No Recent Travel Out of the Country Within the Last 8 Weeks: No - Immunization History Tetanus Immunization: Unable to Assess Hx Influenza Vaccine This Season: No Medications Active Medications Hydrocodone Bitart/Acetaminophen ([place] 5/325) 1 tab PO Q4H PRN PRN Reason: Acute Pain Hydrocodone Bitart/Acetaminophen ([place] 7.5/325) 1 tab PO Q4H PRN PRN Reason: Acute Pain Al Hydroxide/Mg Hydroxide (Milk Of Magnagustina Liq) 30 ml PO BID [facility] Brimonidine Tartrate (Alphagan 0.2% Opth Drops) 1 drops EACH EYE BID [facility] Last Admin: 06/06/18 09:01 Dose: 1 drops Carbidopa/Levodopa (Sinemet 25/250 Mg) 1 tab PO DAILY CAROLYNN Last Admin: 06/06/18 09:01 Dose: 1 tab Carvedilol (Coreg) 25 mg PO BID [facility] Last Admin: 06/06/18 09:00 Dose: 25 mg Chlorhexidine Gluconate (Chlorhexidine 2% Cloth) 3 pack TOPICAL DAILY@0400 CAROLYNN Stop: 06/10/18 03:59 Last Admin: 06/06/18 03:30 Dose: 3 pack Chlorhexidine Gluconate (Chlorhexidine 2% Cloth) 3 pack TOPICAL DAILY@0400 PRN PRN Reason: Extra cloth needed Stop: 06/10/18 03:59 Clonidine HCl (Catapress-Tts 0.2 Mg Patch.7d) 1 patch T-DERMAL Q7D [facility] Dextrose (D50w Vial) 50 ml IV.PUSH UNSCH PRN PRN Reason: PER HYPOGLYCEMIA PROTOCOL Docusate Sodium (Colace) 100 mg PO BID [facility] Last Admin: 06/06/18 09:00 Dose: 100 mg Duloxetine HCl (Cymbalta) 30 mg PO DAILY [facility] Last Admin: 06/06/18 09:01 Dose: 30 mg Enalaprilat (Vasotec Inj) 1.25 mg IV.PUSH Q8H PRN PRN Reason: Blood pressure 180/95 Furosemide (Lasix) 20 mg PO DAILY [facility] Last Admin: 06/06/18 09:00 Dose: 20 mg Glucagon (Glucagon Inj) 1 mg OTHER PRN PRN PRN Reason: for Hypoglycemia Protocol Nicardipine HCl 25 mg/ Sodium (Chloride) 250 mls @ 50 mls/hr IV.CONT TITRATE PRN; Protocol PRN Reason: Per Protocol Stop: 06/06/18 12:00 Last Titration: 06/06/18 10:02 Dose: 0 mg/hr, 0 mls/hr Insulin Aspart (Novolog Insulin Correctional Sugar Inj) 0 unit SQ Q6HR [facility]; Protocol Last Admin: 06/06/18 06:37 Dose: 3 unit Lacosamide (Vimpat) 200 mg PO BID [facility] Last Admin: 06/06/18 09:00 Dose: 200 mg Losartan Potassium (Cozaar) 50 mg PO BID [facility] Last Admin: 06/06/18 09:01 Dose: 50 mg Metformin HCl (Glucophage) 500 mg PO BID [facility] Morphine Sulfate (Morphine Inj) 2 mg IV.PUSH Q3H PRN PRN Reason: Break through pain Non-Formulary Medication (Brimonidine-Timolol [Brimonidine-Timolol]) 1 drp EACH EYE BID [facility] Ondansetron HCl (Zofran Inj) 4 mg IV.PUSH Q6H PRN PRN Reason: NAUSEA OR VOMITING Pantoprazole Sodium (Protonix Inj) 40 mg IV.PUSH Q24H [facility] Last Admin: 06/05/18 21:06 Dose: 40 mg Patch Removal (Remove Old Patch) 1 each T-DERMAL ONCE ONE Stop: 06/06/18 12:00 Patch Removal (Remove Old Patch) 1 each T-DERMAL Q7D [facility] Pravastatin Sodium (Pravachol) 40 mg PO DAILY [facility] Last Admin: 06/06/18 09:01 Dose: 40 mg Sodium Chloride (Ns Flush) 2 ml IV.FLUSH UNSCH PRN PRN Reason: FLUSH AFTER USING IV ACCESS Timolol Maleate (Timoptic 0.5% Drops) 1 drops EACH EYE BID [facility] Last Admin: 06/06/18 09:01 Dose: 1 drops Mental Status Assessment - Mental Status Orientation: oriented to: Self, disoriented to: Place, Time, Situation Mental Status: Impaired: Thought processing Absent: Hallucinations, Delusions Adjustment/Coping Assessment - Adjustment/Coping Adjustment/Coping: Moderate: Awareness, Insight - Observation In terms of emotional functioning, the patient demonstrated challenges. This patient demonstrated no signs of agitation, impulsivity or disinhibition, nor was there remarkable evidence of a formal thought disorder or psychosis. In fact, this morning, he was generally unable to be aroused, and much of the report data was gleaned from observations and other's report. Thought content was free from suicidal, homicidal or paranoid ideation, and thought processes were unable to be determined, but surmised to be bradyphrenic. The patients mood and affect was not able to be determined. It is noted taht the patient is calm, not in restraints, confused and compliant. The patient appears to possess questionable insight and awareness into their situation and within the limits of this brief evaluation, questionable judgment. Behavior - Behavior Treatment Engagement: Minimal - Observation Behaviorally, the patient demonstrated no signs of agitation, impulsivity or disinhibition. There was no remarkable evidence of a formal thought disorder or psychosis. - Goals LTG Status: Deferred STG Status: Deferred - Team Members Team Members: Neuropsychologist Diagnosis/Discharge Plan - Diagnosis (1) Mild major neurocognitive disorder as late effect of traumatic brain injury without behavioral disturbance Status: Acute [facility] Level: Level V Disinhibition Score: 17.50 Aggression Score: 14.00 Lability Score: 14.00 Agitated Behavior Total Score: 16 Maximizing Acute Care Outcome: It is recommended that the patient be monitored for emergent behavioral impulsivity as the medical condition evolves. This patients neuropathological challenges may limit rehabilitation potential going forward, and these challenges will require specialized therapeutic skills to maximize outcome. Additionally, the patients family is experiencing ongoing issues of adjustment given the traumatic nature of the injury, and they may benefit from ongoing psychological assistance. At this point in the recovery process, the patient does not have cognitive capacity as the patient is unable to understand a situation and its likely consequences, nor is the patient able to manipulate information rationally. Cognitive capacity will be assessed throughout the recovery process. - Discharge Planning Anticipated Problems: Ongoing areas of concern will include behavioral impulsivity, lack of insight and judgment, which is expected to improve with time and treatment. Treatment Plan: This clinician will continue to follow with you throughout the course of this patients critical care treatment, and I will be available to meet with the patients family/support system to facilitate their understanding and the ongoing care of their family member. The goals of neuropsychological intervention shall be both educational and supportive to the family/support system as is deemed clinically appropriate. Thank you for the opportunity to assist in this patients care. Hima Bergman, Ph.D., ABPP Board Certified in Clinical Neuropsychology [place] [employer] [place] Licensed Psychologist #[id number]
[2018-06-06] MEDS ORDERED: niCARdipine Inj 25 MG in Sodium Chlor 0.9% Inj 240 ML IV.CONT PRN (11:20)
--- NOTE | 2018-06-06 12:31 | ECHRPT ---
Indication: Chest Pain CONCLUSIONS Normal left ventricular size. Mild concentric left ventricular hypertrophy. The left ventricular systolic function is normal with an estimated ejection fraction in the range of 55-60%. No regional wall motion abnormalities are present. The left atrial size is mildly dilated. Trace mitral valve regurgitation. BP: / HR: Rhythm: MEASUREMENTS (Male / Female) Normal Values Technical Quality: 2D ECHO LV Diastolic Diameter PLAX 5.5 cm 4.2 - 5.9 / 3.9 - 5.3 cm LV Systolic Diameter PLAX 3.5 cm IVS Diastolic Thickness 1.2 cm 0.6 - 1.0 / 0.6 - 0.9 cm LVPW Diastolic Thickness 1.2 cm 0.6 - 1.0 / 0.6 - 0.9 cm LV Relative Wall Thickness 0.4 RV Internal Dim ED PLAX 2.8 cm LVOT Diameter 2.2 cm Aortic Root Diameter 3.2 cm LA Systolic Diameter LX 4.4 cm 3.0 - 4.0 / 2.7 - 3.8 cm M-MODE AV Cusp Separation MM 2.3 cm DOPPLER AV Peak Velocity 160.0 cm/s AV Peak Gradient 10.2 mmHg LVOT Peak Velocity 143.0 cm/s LVOT Peak Gradient 8.2 mmHg AV Area Cont Eq pk 3.4 cm Mitral E Point Velocity 79.5 cm/s Mitral A Point Velocity 94.8 cm/s Mitral E to A Ratio 0.8 LV E' Lateral Velocity 7.5 cm/s Mitral E to LV E' Lateral Ratio 10.7 LV E' Septal Velocity 7.4 cm/s Mitral E to LV E' Septal Ratio 10.7 TR Peak Velocity 204.0 cm/s TR Peak Gradient 16.6 mmHg Right Atrial Pressure 10.0 mmHg Pulmonary Artery Systolic Pressu 26.6 mmHg Right Ventricular Systolic Press 26.6 mmHg PV Peak Velocity 106.0 cm/s PV Peak Gradient 4.5 mmHg FINDINGS LEFT VENTRICLE Normal left ventricular size. Mild concentric left ventricular hypertrophy. The left ventricular systolic function is normal with an estimated ejection fraction in the range of 55-60%. No regional wall motion abnormalities are present. RIGHT VENTRICLE Normal right ventricular size and systolic function. LEFT ATRIUM The left atrial size is mildly dilated. RIGHT ATRIUM The right atrial size is normal. ATRIAL SEPTUM Normal atrial septal thickness without atrial level shunting by limited color doppler interrogation. AORTA The aortic root and proximal ascending aorta are normal in size on limited imaging. MITRAL VALVE Structurally normal mitral valve. No mitral valve stenosis. Trace mitral valve regurgitation. AORTIC VALVE Trileaflet aortic valve. Aortic valve sclerosis is present. No aortic valve stenosis or regurgitation. TRICUSPID VALVE Structurally normal tricuspid valve. There is trace tricuspid valve regurgitation. The estimated pulmonary arterial pressure is 26.6 mmHg. PULMONARY VALVE No pulmonary valve regurgitation or stenosis. VESSELS The inferior vena cava is normal in size. PERICARDIUM There is a small pericardial effusion present. Andrea Dey (Electronically Signed) Final Date:06 June 2018 12:31
--- NOTE | 2018-06-06 16:33 | P.PNCA ---
Subjective Interval history: No events overnight Appears more awake, mild confusion Physical Exam Vital signs: Vital Signs 06/05/18 20:00 06/05/18 20:30 06/06/18 00:00 Temperature 98.0 F 98.0 F Pulse Rate 70 72 Respiratory Rate 25 H 22 Blood Pressure 139/65 144/66 H Pulse Oximetry 97 06/06/18 04:00 06/06/18 08:00 06/06/18 08:27 Temperature 98.2 F 98.6 F Pulse Rate 72 72 Respiratory Rate 15 12 Blood Pressure 158/72 H 148/62 H Pulse Oximetry 97 97 06/06/18 09:00 06/06/18 12:00 Temperature 99.0 F Pulse Rate 65 75 Respiratory Rate 17 Blood Pressure 150/68 H Pulse Oximetry 98 Intake & Output 06/05/18 06/06/18 06/06/18 18:59 06:59 18:59 Intake Total 2950 / 2950 500 / 500 1250 / 1250 Output Total 850 / 850 665 / 665 Balance 2100 / 2100 -165 / -165 1250 / 1250 Weight 118.3 kg Intake: IV 2750 / 2750 500 / 500 1250 / 1250 NS Inj 1,000 ML @ 50 mls/hr IV. 1999 / 1999 1000 / 1000 CONT .Q20H CAROLYNN Rx#:[id number] Cardene Inj 25 MG In NS Inj 240 750 / 750 500 / 500 250 / 250 ML @ 5 MG/HR 50 mls/hr IV.CONT TITRATE PRN Rx#:[id number] Oral 200 / 200 Output: Urine 850 / 850 665 / 665 Other: # Voids 1 # Bowel Movements 0 Narrative: GENERAL: NAD, still mildly confused SKIN: Warm and dry. HEAD: Normocephalic. Abrasion noted EYES: Pupils equal and round. No scleral icterus. No injection or drainage. ENT: No nasal bleeding or discharge. Mucous membranes pink and moist. NECK: Trachea midline. No JVD. CARDIOVASCULAR: Regular rate and rhythm. RESPIRATORY: No accessory muscle use. Decreased breath sounds bilaterally GASTROINTESTINAL: Abdomen soft, non-tender, nondistended. Hepatic and splenic margins not palpable. MUSCULOSKELETAL: Extremities without clubbing, cyanosis, or edema. No obvious deformities. NEUROLOGICAL: Awake and alert. No obvious cranial nerve deficits. Motor grossly within normal limits. Five out of 5 muscle strength in the arms and legs. - Urinary Catheter Management Indwelling Urethral Catheter Cath placed during this visit: no Assessment and Plan - Assessment (1) Syncope and collapse Code(s): R55 - Syncope and collapse Status: Acute (2) Intracranial hemorrhage Code(s): I62.9 - Nontraumatic intracranial hemorrhage, unspecified Status: Acute (3) Blunt trauma of face Code(s): S09.93XA - Unspecified injury of face, initial encounter Status: Acute (4) Hypertension, uncontrolled Code(s): I10 - Essential (primary) hypertension Status: Acute (5) Mild major neurocognitive disorder as late effect of traumatic brain injury without behavioral disturbance Code(s): S06.9X9S - Unspecified intracranial injury with loss of consciousness of unspecified duration, sequela; F02.80 - Dementia in other diseases classified elsewhere without behavioral disturbance Status: Acute - Plan 1) Syncopal episode Per Swati, patient's friend who was with him, he appeared to have a true syncopal episode No other causes noted Per Swati, he's fallen multiple times over the past few weeks Unfortunately loop recorder battery is done Discussed with patient and friend about placing another loop recorder to try to help determine if syncope due to arrhythmia 2) Intracranial hemorrhage Hold Pradaxa Would plan to stop Pradaxa due to multiple falls Consideration of ASA 81mg daily when ok with trauma due to history of CAD, CVA, Afib and PAD 3) Echo showing no cause for syncope Carotid negative for significant disease 4) HTN controlled 5) Upon discharge will follow up with Dr. Syed Benítez, his strategic marketing associate (3) Blunt trauma of face Qualifiers: Encounter type: initial encounter Qualified Code(s): S09.93XA - Unspecified injury of face, initial encounter
--- NOTE | 2018-06-06 17:44 | P.PNCC ---
Subjective Brief History: History of Present Illness HPI Narrative: 68-year-old male complains a headache, facial. Patient had a syncopal episode and fell this afternoon. Patient was seen at [facility] in [place]. CT scan of the brain done this afternoon shows small left temporal parietal subdural hematoma as well as multiple small hemorrhagic contusions involving the right frontal lobe. CT scan facial bones done today shows no evidence of facial bone fracture. Request was made to transfer patient to our institution and it was readily accepted. Patient arrives awake alert but somewhat confused and disoriented motorically fully intact Patient is on Pradaxa for atrial fibrillation he was immediately given Praxbind , for reversal In addition patient is significantly hypertensive and he has been started on nicardipine drip and restarted on carvedilol and levodopa Will have repeat CT scan tomorrow and also cardiac evaluation and carotid ultrasound Past medical history is that of Coronary artery disease Chronic atrial fibrillation controlled and on anticoagulants Hypertension Past myocardial infarction Diabetes mellitus Previous CVA and syncopal episodes History of renal insufficiency Markham's esophagus 24 Hour Review/Hospital Course: 06/05/2018 Unfortunate gentleman who fell at home sustained the right frontal and left parietal contusions with some left subarachnoid hemorrhage In addition patient has chronic A. fib or junctional rhythm controlled by calcium channel blockers and beta blockers Was on Pradaxa and this was reversed with Praxabind. Patient is awake alert but disoriented in time space and person Apparently prior to this he had some degree of dementia Motorically patient is fully intact has full strength in lower and upper extremities and is trying fairly aggressively to get out of bed Repeat CT scan pending Hemodynamically stable with junctional controlled rhythm Hypertensive had to be placed on nicardipine drip. Keep pressure under 160 mmHg Reinstitute all his antihypertensives from home and probably will place patient on small dose Catapres in order to wean the nicardipine Bilateral breath sounds good pulmonary excursion however patient has been in bed and it is coughing up copious secretions Abdomen soft will restart on diet after evaluation by speech therapy Plan Control of hemodynamic values including cardiac rhythm and blood pressure Out of bed aggressive pulmonary toilet Aggressive PT OT Placement in next 24-40 hours will be necessary 06/06/2018 Patient is awake and alert slightly sedated and confused with some pre-existing degree of dementia Repeat CT scan of the brain reveals progression of bilateral frontal and parietal contusions resolution of subarachnoid hemorrhage Hemodynamically stable and quite hypertensive Nicardipine drip has been removed and patient remains on Catapres patch/losartan /carvedilol Cardiology help and expertise greatly appreciated Copious thick secretions Out of bed Transfer to floor and to rehab when bed available Objective Vital Signs / I&O: Vital Signs 06/05/18 20:00 06/05/18 20:30 06/06/18 00:00 Temperature 98.0 F 98.0 F Pulse Rate 70 72 Respiratory Rate 25 H 22 Blood Pressure 139/65 144/66 H Pulse Oximetry 97 06/06/18 04:00 06/06/18 08:00 06/06/18 08:27 Temperature 98.2 F 98.6 F Pulse Rate 72 72 Respiratory Rate 15 12 Blood Pressure 158/72 H 148/62 H Pulse Oximetry 97 97 06/06/18 09:00 06/06/18 12:00 06/06/18 16:00 Temperature 99.0 F 98.0 F Pulse Rate 65 75 62 Respiratory Rate 17 19 Blood Pressure 150/68 H 162/75 H Pulse Oximetry 98 94 L Intake & Output 06/05/18 06/06/18 06/06/18 18:59 06:59 18:59 Intake Total 2950 / 2950 500 / 500 1250 / 1250 Output Total 850 / 850 665 / 665 Balance 2099 / 2099 -165 / -165 1250 / 1250 Weight 118.3 kg Intake: IV 2750 / 2750 500 / 500 1250 / 1250 NS Inj 1,000 ML @ 50 mls/hr IV. 1999 / 1999 1000 / 1000 CONT .Q20H [facility] Rx#:[id number] Cardene Inj 25 MG In NS Inj 240 750 / 750 500 / 500 250 / 250 ML @ 5 MG/HR 50 mls/hr IV.CONT TITRATE PRN Rx#:[id number] Oral 200 / 200 Output: Urine 850 / 850 665 / 665 Other: # Voids 1 # Bowel Movements 0 Result Diagrams: 06/06/18 04:43 06/06/18 04:43 Imaging: Impressions Hand X-Ray 06/05/18 00:00 CONCLUSION: 1. No acute fracture or malalignment. 2. Fracture deformity involving the base of the fourth middle phalanx. 3. Osteopenia and osteoarthritic change. Humerus X-Ray 06/05/18 00:00 CONCLUSION: Negative exam with no acute fracture. Shoulder X-Ray 06/05/18 00:00 CONCLUSION: No acute fracture or malalignment. Degenerative changes are present in the acromioclavicular joint. Disinhibition Score: 17.50 Aggression Score: 14.00 Lability Score: 14.00 Agitated Behavior Total Score: 16 Assessment and Plan Attestation: Critical care time 32 minutes
--- NOTE | 2018-06-06 19:07 | MB ---
cc: Jena Gonzalez MD DATE: 06/06/2018 REQUESTING PHYSICIAN: The patient is being seen at the request of Dr. Ta Talavera. REASON FOR CONSULTATION: Injury to the left hand. HISTORY OF PRESENT ILLNESS: The patient is a 68-year-old male who apparently had a syncopal episode and fell. The patient was seen at [facility] in [place]. A CT scan at that time did show a small left frontotemporal parietal subdural hematoma and the patient was transferred. During the workup, it was noted that the patient had ecchymosis of the base of his thumb and some swelling of his left thumb, and a consultation is requested regarding evaluation and treatment of his left thumb. PAST MEDICAL HISTORY: The patient has a history of atrial fibrillation, arthritis, Markham's esophagus, coronary artery disease, chronic back pain, gastroesophageal reflux disease, cerebrovascular accident, depression, diabetes, glaucoma, hyperlipidemia, MRSA, peripheral artery disease, seizures and sleep apnea. PAST SURGICAL HISTORY: Includes vascular surgery and esophagogastroduodenoscopy. FAMILY HISTORY: Noncontributory. ALLERGIES: HE HAS NO KNOWN FOOD OR DRUG ALLERGIES. MEDICATIONS: Listed on the chart. REVIEW OF SYSTEMS: Only positive as related to his fall. PHYSICAL EXAMINATION: GENERAL: The patient is lying comfortably in bed. VITAL SIGNS: Temperature is 98, pulse is 62, respirations 19, blood pressure is 162/75 and pulse oximetry is presently 94 on oxygen. HEENT: His pupils are equal, round and reactive to light. There is an abrasion on the right side of his forehead. NECK: Supple without masses. LUNGS: Clear. HEART: Regular rate and rhythm. EXTREMITIES: Some swelling and ecchymosis at the base of the thenar eminence. The left thumb also shows minimal swelling. He is able to flex it, but it does cause some discomfort. There is tenderness, especially in the area over the IP joint. There is a residual deformity of the right fourth finger, which the patient indicates happened 2 weeks after he was years ago. Review of the x-rays of the left hand show some possible nondisplaced fractures at the ulnar base of the distal phalanx. This is questionable as the patient does have a significant amount of arthritis. No other abnormalities are noted. IMPRESSION: The patient may have a slight nondisplaced fracture, very minimal at the ulnar base of the distal phalanx of his left thumb. PLAN: I am recommending that this just be wrapped with a 2-inch Riaz bandage for comfort and it should resolve within 3 weeks. MD JASPER Peterson/ct , 06:30 PM , 06:40 PM
[2018-06-06] MEDS: Pantoprazole Inj 40 MG Vial IV.PUSH SCH (21:00)
[2018-06-06] MEDS ORDERED: Timolol 0.5% Drops 5 ML Bottle EACH EYE SCH (21:00)
[2018-06-06] MEDS ORDERED: Brimonidine 0.2% Opth Drops 5 ML Bottle EACH EYE SCH (21:00)
[2018-06-06] MEDS ORDERED: BRIMONIDINE TIMOLOL EACH EYE SCH (21:00)
[2018-06-07] MEDS: Insulin NovoLOG Aspart Correctional Sugar Inj SQ SCH ×4 (00:05→18:20)
[2018-06-07 03:49] LABS: Baso % (Auto) 0.5 % (0.0-2.0); Eos # (Auto) 0.1 th/mm3 (0.0-0.4); Eos % (Auto) 1.8 % (0.0-4.0); Hematocrit 35.7 % (39.0-51.0); Hemoglobin 11.5 gm/dL (13.0-17.0); Lymph # (Auto) 0.9 th/mm3 (1.0-4.8); Lymph % (Auto) 12.1 % (9.0-44.0); Mean Corpuscular HGB Conc 32.1 % (32.0-36.0); Mean Corpuscular Hemoglobin 29.5 pg (27.0-34.0); Mean Corpuscular Volume 91.8 fL (80.0-100.0); Mean Platelet Volume 8.4 fL (7.0-11.0); Mono # (Auto) 0.6 th/mm3 (0.0-0.9); Mono % (Auto) 8.2 % (0.0-8.0); Neut # (Auto) 5.5 th/mm3 (1.8-7.7); Neut % (Auto) 77.4 % (16.0-70.0); Platelet Count 202 th/mm3 (150-450); Red Blood Count 3.89 mil/mm3 (4.50-5.90); White Blood Count 7.1 th/mm3 (4.0-11.0)
[2018-06-07 04:07] LABS: Alanine Aminotransferase 10 U/L (12-78); Albumin 2.7 g/dL (3.4-5.0); Anion Gap 10 meq/L (5-15); Aspartate Aminotransferase 10 U/L (15-37); Blood Urea Nitrogen 18 mg/dL (7-18); Calcium 8.3 mg/dL (8.5-10.1); Carbon Dioxide 19.8 meq/L (21.0-32.0); Chloride 115 meq/L (98-107); Glomerular Filtration Rate 62 mL/min (>89); Glucose,Random 222 mg/dL (74-106); Potassium 3.3 meq/L (3.5-5.1); Sodium 145 meq/L (136-145)
[2018-06-07 04:10] LABS: Alkaline Phosphatase 65 U/L (45-117); Total Protein 6.9 g/dL (6.4-8.2)
[2018-06-07] MEDS: Chlorhexidine Gluconate 2% 1 Pack (2 Cloths) TOPICAL SCH (04:37)
--- NOTE | 2018-06-07 08:09 | P.PNNPSY ---
- Behavior Intact: Impulsive/agitated - Cognitive Moderate: Cognitive, Attention/concentration, Confused/orientation, Insight/ awareness, Judgment/problem solving, Memory - Psychosocial Intact: Psychosocial, Family/other adjustment, Realistic expectation - Progress Notes/Response to Treatment Contents of Sessions: Adjustment, Level of consciousness Time with Patient: 30 minutes Premorbid Psychological Status: Premorbid Cognitive, Emotional and Behavioral Status: Stable. The patient has high school years of education and is retired from the work history prior to this injury. The patient has prior psychiatric difficulties of depression, as described above. Substance abuse history is unremarkable. Behavioral Reactions of Patient and Family/Support System: Stable. The patient s family is experiencing ongoing issues of adjustment given the nature of the injury, and this aspect of recovery will require ongoing monitoring. Emotional/Behavioral Status of Patient and Family/Support System: Stable. Pertinent issues, if appropriate to this patients clinical care, are described in detail above. Maximizing Acute Care Outcome: It is recommended that the patient be monitored for emergent behavioral impulsivity as the medical condition evolves. This patients neuropathological challenges may limit rehabilitation potential going forward, and these challenges will require specialized therapeutic skills to maximize outcome. Additionally, the patients family is experiencing ongoing issues of adjustment given the traumatic nature of the injury, and they may benefit from ongoing psychological assistance. At this point in the recovery process, the patient does not have cognitive capacity as the patient is unable to understand a situation and its likely consequences, nor is the patient able to manipulate information rationally. Cognitive capacity will be assessed throughout the recovery process. Anticipated Problems: Ongoing areas of concern will include behavioral impulsivity, lack of insight and judgment, which is expected to improve with time and treatment. Treatment Plan: This clinician will continue to follow with you throughout the course of this patients critical care treatment, and I will be available to meet with the patients family/support system to facilitate their understanding and the ongoing care of their family member. The goals of neuropsychological intervention shall be both educational and supportive to the family/support system as is deemed clinically appropriate. [place] COG Scale: Level V Disinhibition Score: 17.50 Aggression Score: 14.00 Lability Score: 18.66 Agitated Behavior Total Score: 16 Impression: 68 year old male s/p TBI 2T fall on 06/04/2018 with likely underlying major neurocognitive disorder that predated this injury. Progress Note Narrative: PTD 3. The patient is awake, alert, confused, but not agitated. Recent ABS = 16 (17.5,14,18.7). He is [place] and is awaiting transfer to the floor or rehab. I will follow. - Diagnosis (1) Mild major neurocognitive disorder as late effect of traumatic brain injury without behavioral disturbance Status: Acute
[2018-06-07] MEDS: Furosemide 20 MG Tablet PO SCH (08:51)
[2018-06-07] MEDS: Carvedilol 12.5 MG Tablet PO SCH ×2 (08:59→20:42)
[2018-06-07] MEDS: Brimonidine 0.2% Opth Drops 5 ML Bottle EACH EYE SCH ×2 (09:02→20:45)
[2018-06-07] MEDS: Docusate Sodium 100 MG Capsule PO SCH ×2 (09:02→20:15)
[2018-06-07] MEDS: Lacosamide 100 MG Tablet PO SCH ×2 (09:02→20:43)
[2018-06-07] MEDS: Timolol 0.5% Drops 5 ML Bottle EACH EYE SCH ×2 (09:03→20:45)
[2018-06-07] MEDS: NIFEdipine 10 MG Capsule PO SCH ×2 (11:38→19:44)
--- NOTE | 2018-06-07 12:56 | P.PNNS ---
Subjective Interval history: Pt awakens to voice. He is confused but pleasant. Complains of headaches all over. He has complaints of generalized weakness. Physical Exam Vital signs: Vital Signs 06/06/18 16:00 06/06/18 20:00 06/06/18 20:04 Temperature 98.0 F 98.4 F Pulse Rate 62 67 Respiratory Rate 19 14 Blood Pressure 162/75 H 166/77 H Pulse Oximetry 94 L 100 98 06/06/18 23:58 06/07/18 04:00 06/07/18 08:00 Temperature 98.7 F 98.7 F 98.6 F Pulse Rate 76 64 67 Respiratory Rate 16 13 12 Blood Pressure 164/72 H 166/72 H 168/75 H Pulse Oximetry 100 06/07/18 09:00 Temperature Pulse Rate 66 Respiratory Rate Blood Pressure Pulse Oximetry Intake & Output 06/06/18 06/07/18 06/07/18 18:59 06:59 18:59 Intake Total 2000 / 1999 Output Total 1725 / 1725 Balance 275 / 275 Intake: IV 1250 / 1250 NS Inj 1,000 ML @ 50 mls/hr IV. 1000 / 1000 CONT .Q20H [facility] Rx#:[id number] Cardene Inj 25 MG In NS Inj 240 250 / 250 ML @ 5 MG/HR 50 mls/hr IV.CONT TITRATE PRN Rx#:[id number] Oral 750 / 750 Output: Urine 800 / 800 Urine Amount (Catheter) 925 / 925 Indwelling Urethral Catheter 925 / 925 Other: # Voids 6 # Bowel Movements 0 - Constitutional no acute distress - Routine HEENT Exam Head: Present: abrasion (abrasions and scalp wound on right frontoparietal area. No erythema. Some serous drainage on bandage.). Absent: normocephalic ( abrasions and scalp wound on right. No erythema. Some serous drainage on bandage.) Eye: Present: PERRL. Absent: conjunctival icterus ENT: Present: oropharynx clear - Routine Neck Exam Present: trachea midline - Routine Respiratory Exam Present: CTA bilaterally. Absent: respiratory distress, rhonchi, wheezes - Routine Cardiovascular Exam Present: RRR, S1, S2. Absent: murmur - Routine Abdominal Exam Present: soft, normoactive bowel sounds, firm. Absent: tenderness - Routine Skin Exam Present: wounds (abrasions and scalp wound on right. No erythema. Some serous drainage on bandage.). Absent: cyanosis, erythema - Routine Neurological Exam Present: alert, altered mental status (mild.), moving all extremities. Absent: oriented X3 (Pt with some disorientation but pleasant.), motor deficit - Detailed Neurological Exam: Coma Scale Eye Opening: Spontaneous Verbal Response: Confused Motor Response: Obey commands Michael Coma Scale Total: 14 - Routine Psychiatric Exam Present: cooperative. Absent: good insight, good judgment, agitated - Urinary Catheter Management Indwelling Urethral Catheter Cath placed during this visit: no Assessment and Plan - Assessment (1) Intracranial hemorrhage Code(s): I62.9 - Nontraumatic intracranial hemorrhage, unspecified Status: Acute (2) Blunt trauma of face Code(s): S09.93XA - Unspecified injury of face, initial encounter Status: Acute Qualifiers: Encounter type: initial encounter Qualified Code(s): S09.93XA - Unspecified injury of face, initial encounter (3) Hypertension, uncontrolled Code(s): I10 - Essential (primary) hypertension Status: Acute (4) Mild major neurocognitive disorder as late effect of traumatic brain injury without behavioral disturbance Code(s): S06.9X9S - Unspecified intracranial injury with loss of consciousness of unspecified duration, sequela; F02.80 - Dementia in other diseases classified elsewhere without behavioral disturbance Status: Acute (5) Syncope and collapse Code(s): R55 - Syncope and collapse Status: Acute - Plan Imaging: Ct head consistent with left sided small 5 mm acute SDH with multiple small foci of intraparenchymal hemorrhage/contusions mostly to the right frontal lobe A/P: 68 yo M on pradaxa s/p fall with IPH/contusions/SDH (06/04) -pradaxa reversed -repeat CT's 06/05 (cp admit 06/04) show expected evolution of frontal contusions- - all small and stable - no neurosurgical intervention -recommend q2 hr neuro checks with close monitoring -relax blood pressure restriction to SBP 160 today then d/c in coordination with Trauma service -Keppra for 7 days for seizure prophylaxis -PT/OT mobilize, activity as tolerated (up to chair) -- can transfer to floor -syncope workup Pt seen and examined in conjunction with Dr. Bowers and note written on his behalf.
--- NOTE | 2018-06-07 13:51 | P.PNWCN ---
Wound Care Nurse Consult Description: Received consult form Fadia RAWLS for wound management of R big toe chronic wound. Communicated with: PARISH Vu [address] [place] [address] Recommendation: Please cleanse wound to R great toe with normal saline and pat dry. Apply Cavilon skin barrier film to periwound and let dry. Apply maxorb II packed loosely to wound bed and cover with hydrocolloid dressing. Change every 5 days or PRN if saturated or dislodged. Patient needs to follow up with higher education administrator in [place], [place], Doctor Gauthier when discharged. Wound/Pressure Injury - Wound Right Great Toe Wound Assessment: Ongoing Wound Type: Traumatic Wound (Diabetic foot ulcer) Requested from Provider a Wound Care Consult: Yes Length: 0.4 (cm) Width: 0.4 (cm) Depth: 0.3 (cm) Wound Bed Appearance: [place], Tunneling/Undermining (Undermining is noted circumferentially 0.4cm) Wound Bed Appearance: Wound bed presents with 100% pink tissue. Periwound presents with callused hyperkeratotic tissue that is circumferential. Surrounding Tissue Temperature: Warm Drainage Description: Serous Drainage Amount: Scant Drainage Odor: No Odor Dressing Status: Changed Cleansing Solution: Saline Wound Packing Type: Alginate (Maxorb II) Primary Dressing: Hydrocolloid Tape Type: Paper Wound Dressing Change Date: 06/07/18 Wound Margin Description: Well defined - Additional Information Patient seen on [address] [place] [address] for evaluation of wound to R great toe. Patient is sitting in recliner with BLE elevated upon field underwriter's arrival. Family members are in room. Spoke with patient regarding wound history. Yady has had wound on R great to for some time and is Diabetic. Patient sees higher education administrator outpatient in [place], Doctor Leal for wound care of great toe. Removed sock on patient's R foot to reveal R great toe wound, Wound measurements and full description noted above. Cleansed wound to R great toe with normal saline and patted dry. Wound was packed with maxorb II cut in to small strip, Covered with wound hydrocolloid dressing, recommendations for wound care are also noted above. Patient tolerated dressing change and wound assessment well.
--- NOTE | 2018-06-07 16:22 | P.PNCC ---
Subjective Brief History: History of Present Illness HPI Narrative: 68-year-old male complains a headache, facial. Patient had a syncopal episode and fell this afternoon. Patient was seen at [facility] in [place]. CT scan of the brain done this afternoon shows small left temporal parietal subdural hematoma as well as multiple small hemorrhagic contusions involving the right frontal lobe. CT scan facial bones done today shows no evidence of facial bone fracture. Request was made to transfer patient to our institution and it was readily accepted. Patient arrives awake alert but somewhat confused and disoriented motorically fully intact Patient is on Pradaxa for atrial fibrillation he was immediately given Praxbind , for reversal In addition patient is significantly hypertensive and he has been started on nicardipine drip and restarted on carvedilol and levodopa Will have repeat CT scan tomorrow and also cardiac evaluation and carotid ultrasound Past medical history is that of Coronary artery disease Chronic atrial fibrillation controlled and on anticoagulants Hypertension Past myocardial infarction Diabetes mellitus Previous CVA and syncopal episodes History of renal insufficiency Markham's esophagus 24 Hour Review/Hospital Course: 06/05/2018 Unfortunate gentleman who fell at home sustained the right frontal and left parietal contusions with some left subarachnoid hemorrhage In addition patient has chronic A. fib or junctional rhythm controlled by calcium channel blockers and beta blockers Was on Pradaxa and this was reversed with Praxabind. Patient is awake alert but disoriented in time space and person Apparently prior to this he had some degree of dementia Motorically patient is fully intact has full strength in lower and upper extremities and is trying fairly aggressively to get out of bed Repeat CT scan pending Hemodynamically stable with junctional controlled rhythm Hypertensive had to be placed on nicardipine drip. Keep pressure under 160 mmHg Reinstitute all his antihypertensives from home and probably will place patient on small dose Catapres in order to wean the nicardipine Bilateral breath sounds good pulmonary excursion however patient has been in bed and it is coughing up copious secretions Abdomen soft will restart on diet after evaluation by speech therapy Plan Control of hemodynamic values including cardiac rhythm and blood pressure Out of bed aggressive pulmonary toilet Aggressive PT OT Placement in next 24-40 hours will be necessary 06/06/2018 Patient is awake and alert slightly sedated and confused with some pre-existing degree of dementia Repeat CT scan of the brain reveals progression of bilateral frontal and parietal contusions resolution of subarachnoid hemorrhage Hemodynamically stable and quite hypertensive Nicardipine drip has been removed and patient remains on Catapres patch/losartan /carvedilol Cardiology help and expertise greatly appreciated Copious thick secretions Out of bed Transfer to floor and to rehab when bed available 06/07/2018 Awake alert oriented and pleasantly confused Neurologically motorically and sensory intact Hypertension now controlled and patient is off all drips tolerating p.o. meds Transfer to floor when bed available. 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 Transfer to rehab facility when bed available Objective Vital Signs / I&O: Vital Signs 06/06/18 20:00 06/06/18 20:04 06/06/18 23:58 Temperature 98.4 F 98.7 F Pulse Rate 67 76 Respiratory Rate 14 16 Blood Pressure 166/77 H 164/72 H Pulse Oximetry 100 98 06/07/18 04:00 06/07/18 08:00 06/07/18 09:00 Temperature 98.7 F 98.6 F Pulse Rate 64 67 66 Respiratory Rate 13 12 Blood Pressure 166/72 H 168/75 H Pulse Oximetry 100 06/07/18 12:00 06/07/18 14:00 Temperature 98.1 F Pulse Rate 56 L Respiratory Rate 20 Blood Pressure 128/71 Pulse Oximetry 99 99 Intake & Output 06/06/18 06/07/18 06/07/18 18:59 06:59 18:59 Intake Total 1999 / 1999 Output Total 1725 / 1725 Balance 275 / 275 Intake: IV 1250 / 1250 NS Inj 1,000 ML @ 50 mls/hr IV. 1000 / 1000 CONT .Q20H [facility] Rx#:[id number] Cardene Inj 25 MG In NS Inj 240 250 / 250 ML @ 5 MG/HR 50 mls/hr IV.CONT TITRATE PRN Rx#:[id number] Oral 750 / 750 Output: Urine 800 / 800 Urine Amount (Catheter) 925 / 925 Indwelling Urethral Catheter 925 / 925 Other: # Voids 6 # Bowel Movements 0 Result Diagrams: 06/07/18 03:07 06/07/18 03:07 Disinhibition Score: 17.50 Aggression Score: 14.00 Lability Score: 18.66 Agitated Behavior Total Score: 16 Assessment and Plan Attestation: Critical care time no charge to considering patient does not require ICU care
--- NOTE | 2018-06-07 16:55 | P.PNCA ---
Subjective Interval history: Questionable event earlier with heart rates in the 30s, asymptomatic Reviewed telemetry, sinus rhythm with heart rates in the 70s (telemetry not counting every beat) No complaints Physical Exam Vital signs: Vital Signs 06/06/18 20:00 06/06/18 20:04 06/06/18 23:58 Temperature 98.4 F 98.7 F Pulse Rate 67 76 Respiratory Rate 14 16 Blood Pressure 166/77 H 164/72 H Pulse Oximetry 100 98 06/07/18 04:00 06/07/18 08:00 06/07/18 09:00 Temperature 98.7 F 98.6 F Pulse Rate 64 67 66 Respiratory Rate 13 12 Blood Pressure 166/72 H 168/75 H Pulse Oximetry 100 06/07/18 12:00 06/07/18 14:00 06/07/18 16:00 Temperature 98.1 F 98.2 F Pulse Rate 56 L 64 Respiratory Rate 20 15 Blood Pressure 128/71 148/70 H Pulse Oximetry 99 99 100 Intake & Output 06/06/18 06/07/18 06/07/18 18:59 06:59 18:59 Intake Total 1999 / 1999 Output Total 1725 / 1725 Balance 275 / 275 Intake: IV 1250 / 1250 NS Inj 1,000 ML @ 50 mls/hr IV. 1000 / 1000 CONT .Q20H [facility] Rx#:[id number] Cardene Inj 25 MG In NS Inj 240 250 / 250 ML @ 5 MG/HR 50 mls/hr IV.CONT TITRATE PRN Rx#:[id number] Oral 750 / 750 Output: Urine 800 / 800 Urine Amount (Catheter) 925 / 925 Indwelling Urethral Catheter 925 / 925 Other: # Voids 6 # Bowel Movements 0 Narrative: GENERAL: NAD SKIN: Warm and dry. HEAD: Normocephalic. Abrasion noted EYES: Pupils equal and round. No scleral icterus. No injection or drainage. ENT: No nasal bleeding or discharge. Mucous membranes pink and moist. NECK: Trachea midline. No JVD. CARDIOVASCULAR: Regular rate and rhythm. RESPIRATORY: No accessory muscle use. Decreased breath sounds bilaterally GASTROINTESTINAL: Abdomen soft, non-tender, nondistended. Hepatic and splenic margins not palpable. MUSCULOSKELETAL: Extremities without clubbing, cyanosis, or edema. No obvious deformities. NEUROLOGICAL: Awake and alert. No obvious cranial nerve deficits. Motor grossly within normal limits. Five out of 5 muscle strength in the arms and legs. - Urinary Catheter Management Indwelling Urethral Catheter Cath placed during this visit: no Assessment and Plan - Assessment (1) Syncope and collapse Code(s): R55 - Syncope and collapse Status: Acute (2) Intracranial hemorrhage Code(s): I62.9 - Nontraumatic intracranial hemorrhage, unspecified Status: Acute (3) Blunt trauma of face Code(s): S09.93XA - Unspecified injury of face, initial encounter Status: Acute (4) Hypertension, uncontrolled Code(s): I10 - Essential (primary) hypertension Status: Acute (5) Mild major neurocognitive disorder as late effect of traumatic brain injury without behavioral disturbance Code(s): S06.9X9S - Unspecified intracranial injury with loss of consciousness of unspecified duration, sequela; F02.80 - Dementia in other diseases classified elsewhere without behavioral disturbance Status: Acute - Plan 1) Syncopal episode Per Swati, patient's friend who was with him, he appeared to have a true syncopal episode No other causes noted Per Swati, he's fallen multiple times over the past few weeks Unfortunately loop recorder battery is done Discussed with patient and friend about placing another loop recorder to try to help determine if syncope due to arrhythmia Planned for tomorrow 2) Intracranial hemorrhage Hold Pradaxa Would plan to stop Pradaxa due to multiple falls Consideration of ASA 81mg daily when ok with trauma due to history of CAD, CVA, Afib and PAD 3) Echo showing no cause for syncope Carotid negative for significant disease 4) HTN Would avoid Clonidine if possible as difficult mcc Started on Nifedipine 10mg TID If BP stable, then discharge on long acting 5) Upon discharge will follow up with Dr. Syed Benítez, his beauty artist (3) Blunt trauma of face Qualifiers: Encounter type: initial encounter Qualified Code(s): S09.93XA - Unspecified injury of face, initial encounter
--- NOTE | 2018-06-07 17:25 | P.CONIM ---
History of Present Illness Service: [facility] hospitalist Requesting Physician: Kayden Crespo Reason for Consult: Medical management Primary Care Provider: UNKNOWN Chief Complaint: headache History of Present Illness: 68-year-old male with a medical history significant for coronary artery disease , previous stroke, atrial fibrillation who apparently had a syncopal episode falling onto his face. He was taken to [facility] where he was found to have a subdural hematoma. The patient was admitted to [facility] trauma service. He has been on Pradaxa and was given reversal agent. 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 The patient has been in the ICU and have since stabilized. He has been on a Cardene drip for severely elevated hypertension. He has since been weaned off. [facility] hospitalist was consulted to assist with medical management. On my evaluation, the patient reports he is feeling okay. No acute complaints. Currently denies headache or lightheadedness. He is demented and cannot contribute much to the history. EMR reviewed extensively. Discussed with RN. Review of Systems All other systems reviewed negative except as stated in HPI PMFSH - History History Provided By: Friend - Medical History Medical History: Medical History (Last Reviewed 06/07/18 @ 08:21 by [employer]) Afib Arthritis Barretts esophagus CAD (coronary artery disease) CVA (cerebral vascular accident) Chronic GERD Chronic back pain Depression Diabetes Glaucoma Hyperlipemia MRSA (methicillin resistant Staphylococcus aureus) PAD (peripheral artery disease) Seizure Sleep apnea - Surgical History Surgical History: Surgical History (Last Reviewed 06/07/18 @ 08:25 by [employer]) H/O vascular surgery History of esophagogastroduodenoscopy (EGD) - Family History Family History: Family History (Last Updated 06/07/18 @ 17:18 by Al Ba MD) Other Family history non-contributory - Social History I have reviewed the patient's Social History: Yes - Tobacco History Second Hand Smoke Exposure: No Tobacco Use In Past 30 Days: No Smoking Status: Former smoker Tobacco Type: Cigarettes - Alcohol History How Often Do You Have a Drink Containing Alcohol: Never - Substance Use History Substance History: No History of Abuse - Travel History Recent Travel in the [facility] Within the Last 8 Weeks: No Recent Travel Out of the Country Within the Last 8 Weeks: No - Immunization History Tetanus Immunization: Unable to Assess Hx Influenza Vaccine This Season: No Medications and Allergies Active Medications: Active Medications Hydrocodone Bitart/Acetaminophen ([place] 5/325) 1 tab PO Q4H PRN PRN Reason: Acute Pain Hydrocodone Bitart/Acetaminophen ([place] 7.5/325) 1 tab PO Q4H PRN PRN Reason: Acute Pain Last Admin: 06/07/18 09:32 Dose: 1 tab Al Hydroxide/Mg Hydroxide (Milk Of Raji Liluann) 30 ml PO BID [facility] Last Admin: 06/07/18 09:32 Dose: 30 ml Brimonidine Tartrate (Alphagan 0.2% Opth Drops) 1 drops EACH EYE BID [facility] Last Admin: 06/07/18 09:02 Dose: 1 drops Carbidopa/Levodopa (Sinemet 25/250 Mg) 1 tab PO DAILY [facility] Last Admin: 06/07/18 08:59 Dose: 1 tab Carvedilol (Coreg) 25 mg PO BID [facility] Last Admin: 06/07/18 08:59 Dose: 25 mg Chlorhexidine Gluconate (Chlorhexidine 2% Cloth) 3 pack TOPICAL DAILY@0400 [facility] Stop: 06/10/18 03:59 Last Admin: 06/07/18 04:37 Dose: 3 pack Chlorhexidine Gluconate (Chlorhexidine 2% Cloth) 3 pack TOPICAL DAILY@0400 PRN PRN Reason: Extra cloth needed Stop: 06/10/18 03:59 Dextrose (D50w Vial) 50 ml IV.PUSH UNSCH PRN PRN Reason: PER HYPOGLYCEMIA PROTOCOL Docusate Sodium (Colace) 100 mg PO BID [facility] Last Admin: 06/07/18 09:02 Dose: 100 mg Duloxetine HCl (Cymbalta) 30 mg PO DAILY [facility] Last Admin: 06/07/18 09:03 Dose: 30 mg Enalaprilat (Vasotec Inj) 1.25 mg IV.PUSH Q8H PRN PRN Reason: Blood pressure 180/95 Last Admin: 06/07/18 04:31 Dose: 1.25 mg Furosemide (Lasix) 20 mg PO DAILY [facility] Last Admin: 06/07/18 08:51 Dose: 20 mg Glucagon (Glucagon Inj) 1 mg OTHER PRN PRN PRN Reason: for Hypoglycemia Protocol Insulin Aspart (Novolog Insulin Correctional Sugar Inj) 0 unit SQ Q6HR [facility]; Protocol Last Admin: 06/07/18 14:25 Dose: 5 unit Lacosamide (Vimpat) 200 mg PO BID [facility] Last Admin: 06/07/18 09:02 Dose: 200 mg Losartan Potassium (Cozaar) 50 mg PO BID [facility] Last Admin: 06/07/18 08:51 Dose: 50 mg Metformin HCl (Glucophage) 500 mg PO BIDPC [facility] Last Admin: 06/07/18 08:59 Dose: 500 mg Morphine Sulfate (Morphine Inj) 2 mg IV.PUSH Q3H PRN PRN Reason: Break through pain Last Admin: 06/06/18 17:55 Dose: 2 mg Nifedipine (Procardia) 10 mg PO Q8H [facility] Last Admin: 06/07/18 11:38 Dose: 10 mg Ondansetron HCl (Zofran Inj) 4 mg IV.PUSH Q6H PRN PRN Reason: NAUSEA OR VOMITING Pantoprazole Sodium (Protonix Inj) 40 mg IV.PUSH Q24H [facility] Last Admin: 06/06/18 21:00 Dose: 40 mg Pravastatin Sodium (Pravachol) 40 mg PO DAILY [facility] Last Admin: 06/07/18 09:02 Dose: 40 mg Sodium Chloride (Ns Flush) 2 ml IV.FLUSH UNSCH PRN PRN Reason: FLUSH AFTER USING IV ACCESS Timolol Maleate (Timoptic 0.5% Drops) 1 drops EACH EYE BID [facility] Last Admin: 06/07/18 09:03 Dose: 1 drops Allergies Allergy/AdvReac Type Severity Reaction Status Date / Time No Known Allergies Allergy Verified 06/04/18 17:28 Home Medications Medication Instructions Recorded Confirmed Type acetazolamide 500 mg PO BID 06/04/18 06/04/18 History brimonidine-timolol 1 drp OPHTHALMIC (EYE) BID 06/04/18 06/04/18 History carbidopa-levodopa 1 tab PO DAILY 06/04/18 06/04/18 History carvedilol 25 mg PO BID 06/04/18 06/04/18 History dabigatran etexilate [Pradaxa] 150 mg PO BID 06/04/18 06/04/18 History duloxetine [Cymbalta] 30 mg PO DAILY 06/04/18 06/04/18 History furosemide [Lasix] 20 mg PO DAILY 06/04/18 06/04/18 History insulin NPH and regular human 35 unit SUB-Q AC DINNER 06/04/18 06/04/18 History insulin NPH and regular human 35 unit SUB-Q QAM 06/04/18 06/04/18 History lacosamide [Vimpat] 200 mg PO BID 06/04/18 06/04/18 History losartan [Cozaar] 50 mg PO BID 06/04/18 06/04/18 History metformin 500 mg PO BID 06/04/18 06/04/18 History omeprazole 20 mg PO DAILY 06/04/18 06/04/18 History simvastatin [Zocor] 20 mg PO DAILY 06/04/18 06/04/18 History Exam Vital signs: Vital Signs 06/06/18 20:00 06/06/18 20:04 06/06/18 23:58 Temperature 98.4 F 98.7 F Pulse Rate 67 76 Respiratory Rate 14 16 Blood Pressure 166/77 H 164/72 H Pulse Oximetry 100 98 06/07/18 04:00 06/07/18 08:00 06/07/18 09:00 Temperature 98.7 F 98.6 F Pulse Rate 64 67 66 Respiratory Rate 13 12 Blood Pressure 166/72 H 168/75 H Pulse Oximetry 100 06/07/18 12:00 06/07/18 14:00 06/07/18 16:00 Temperature 98.1 F 98.2 F Pulse Rate 56 L 64 Respiratory Rate 20 15 Blood Pressure 128/71 148/70 H Pulse Oximetry 99 99 100 Intake & Output 06/06/18 06/07/18 06/07/18 18:59 06:59 18:59 Intake Total 1999 / 1999 Output Total 1725 / 1725 Balance 275 / 275 Intake: IV 1250 / 1250 NS Inj 1,000 ML @ 50 mls/hr IV. 1000 / 1000 CONT .Q20H CAROLYNN Rx#:[id number] Cardene Inj 25 MG In NS Inj 240 250 / 250 ML @ 5 MG/HR 50 mls/hr IV.CONT TITRATE PRN Rx#:[id number] Oral 750 / 750 Output: Urine 800 / 800 Urine Amount (Catheter) 925 / 925 Indwelling Urethral Catheter 925 / 925 Other: # Voids 6 # Bowel Movements 0 Narrative: GENERAL: This is a well-nourished, well-developed patient, in no apparent distress. CARDIOVASCULAR: Normal rate and regular rhythm without murmurs, gallops, or rubs. RESPIRATORY: Good respiratory efforts. Breath sounds equal and clear to auscultation bilaterally. GASTROINTESTINAL: Abdomen soft, non-tender, non-distended. Normal active bowel sounds MUSCULOSKELETAL: Extremities without cyanosis, or edema. NEURO: Alert & Oriented to self only. Moves all ext x4 PSYCH: Calm Results - Labs CBC & Chem 7: 06/07/18 03:07 06/07/18 03:07 Labs: Laboratory Results - last 24 hr 06/06/18 06/06/18 06/07/18 17:16 23:40 03:07 WBC 7.1 RBC 3.89 L Hgb 11.5 L Hct 35.7 L MCV 91.8 MCH 29.5 MCHC 32.1 RDW 15.0 Plt Count 202 MPV 8.4 Neut % (Auto) 77.4 H Lymph % (Auto) 12.1 [place] % (Auto) 8.2 H Eos % (Auto) 1.8 Baso % (Auto) 0.5 Neut # (Auto) 5.5 Lymph # (Auto) 0.9 L [place] # (Auto) 0.6 Eos # (Auto) 0.1 Baso # (Auto) 0.0 WBC Differential . Differential Comment Auto diff final Sodium Potassium Chloride Carbon Dioxide Anion Gap BUN Creatinine Estimated GFR POC Glucose 274 H 284 H Random Glucose Calcium Total Bilirubin AST ALT Alkaline Phosphatase Total Protein Albumin 06/07/18 06/07/18 06/07/18 03:07 06:26 08:40 WBC RBC Hgb Hct MCV MCH MCHC RDW Plt Count MPV Neut % (Auto) Lymph % (Auto) [place] % (Auto) Eos % (Auto) Baso % (Auto) Neut # (Auto) Lymph # (Auto) [place] # (Auto) Eos # (Auto) Baso # (Auto) WBC Differential Differential Comment Sodium 145 Potassium 3.3 L Chloride 115 H Carbon Dioxide 19.8 L Anion Gap 10 BUN 18 Creatinine 1.17 Estimated GFR 62 L POC Glucose 203 H 252 H Random Glucose 222 H Calcium 8.3 L Total Bilirubin 0.4 AST 10 L ALT 10 L Alkaline Phosphatase 65 Total Protein 6.9 Albumin 2.7 L 06/07/18 13:34 WBC RBC Hgb Hct MCV MCH MCHC RDW Plt Count MPV Neut % (Auto) Lymph % (Auto) [place] % (Auto) Eos % (Auto) Baso % (Auto) Neut # (Auto) Lymph # (Auto) [place] # (Auto) Eos # (Auto) Baso # (Auto) WBC Differential Differential Comment Sodium Potassium Chloride Carbon Dioxide Anion Gap BUN Creatinine Estimated GFR POC Glucose 285 H Random Glucose Calcium Total Bilirubin AST ALT Alkaline Phosphatase Total Protein Albumin Assessment and Plan - Plan 68-year-old male with: Intracranial hemorrhage and subdural hematoma: - Patient status post fall. He has been on Pradaxa. Status post reversal with proximal bend. - Pradaxa has since been discontinued. Agree with cardiology to consider aspirin when okay with the trauma service given he is significant history of CAD , prior CVA, and A. fib. - Continue PT/OT Hypertension: Status post Cardene drip. - Patient started on nifedipine 10 mg 3 times daily. Continue Coreg, Lasix, losartan. -Discussed with RN. Blood pressure better controlled. Continue to monitor and adjust antihypertensives as needed. Syncope: Frequent falls - Unclear if cardiac in origin. Patient has had frequent falls. Appreciate cardiology following. Patient had a loop recorder but the battery ran out. Cardiology planning to replace loop recorder tomorrow. Hypokalemia: - replace and monitor. Check mag. Dementia: Continue Sinemet Diabetes: Continue home medications and insulin. GI prophylaxis: Stool softener PRN constipation. DVT PPx: SCDs. Chemoprophylaxis contraindicated due to ICH. Thank you for allowing me to participate in the care of Mr. Christopher. We will continue to follow
[2018-06-07] MEDS: Pantoprazole Inj 40 MG Vial IV.PUSH SCH (19:44)
[2018-06-08] MEDS: Insulin NovoLOG Aspart Correctional Sugar Inj SQ SCH ×2 (00:14→06:09)
[2018-06-08] MEDS: Chlorhexidine Gluconate 2% 1 Pack (2 Cloths) TOPICAL SCH (03:20)
[2018-06-08] MEDS: NIFEdipine 10 MG Capsule PO SCH ×2 (03:21→10:43)
[2018-06-08 04:08] LABS: Baso % (Auto) 0.4 % (0.0-2.0); Eos # (Auto) 0.1 th/mm3 (0.0-0.4); Eos % (Auto) 1.7 % (0.0-4.0); Hematocrit 35.6 % (39.0-51.0); Hemoglobin 11.6 gm/dL (13.0-17.0); Lymph # (Auto) 0.7 th/mm3 (1.0-4.8); Lymph % (Auto) 9.9 % (9.0-44.0); Mean Corpuscular HGB Conc 32.5 % (32.0-36.0); Mean Corpuscular Hemoglobin 29.7 pg (27.0-34.0); Mean Corpuscular Volume 91.4 fL (80.0-100.0); Mean Platelet Volume 8.3 fL (7.0-11.0); Mono # (Auto) 0.6 th/mm3 (0.0-0.9); Mono % (Auto) 7.9 % (0.0-8.0); Neut # (Auto) 5.7 th/mm3 (1.8-7.7); Neut % (Auto) 80.1 % (16.0-70.0); Platelet Count 194 th/mm3 (150-450); Red Blood Count 3.89 mil/mm3 (4.50-5.90); Red Cell Distribution Width 15.3 % (11.6-17.2); White Blood Count 7.1 th/mm3 (4.0-11.0)
[2018-06-08 04:30] LABS: Albumin 2.7 g/dL (3.4-5.0); Anion Gap 9 meq/L (5-15); Aspartate Aminotransferase 12 U/L (15-37); Blood Urea Nitrogen 18 mg/dL (7-18); Calcium 8.9 mg/dL (8.5-10.1); Carbon Dioxide 20.7 meq/L (21.0-32.0); Chloride 111 meq/L (98-107); Glomerular Filtration Rate 66 mL/min (>89); Glucose,Random 206 mg/dL (74-106); Potassium 3.7 meq/L (3.5-5.1); Sodium 141 meq/L (136-145)
[2018-06-08 04:31] LABS: Alanine Aminotransferase 12 U/L (12-78)
[2018-06-08 04:33] LABS: Alkaline Phosphatase 71 U/L (45-117); Total Protein 7.2 g/dL (6.4-8.2)
[2018-06-08 08:03] VITALS: RESP 18
--- NOTE | 2018-06-08 08:10 | P.PNNPSY ---
- Behavior Moderate: Impulsive/agitated - Cognitive Moderate: Cognitive, Attention/concentration, Confused/orientation, Insight/ awareness, Judgment/problem solving, Memory - Psychosocial Intact: Psychosocial, Family/other adjustment, Realistic expectation - Progress Notes/Response to Treatment Contents of Sessions: Adjustment, Level of consciousness Time with Patient: 30 minutes Premorbid Psychological Status: Premorbid Cognitive, Emotional and Behavioral Status: Stable. The patient has high school years of education and is retired from the work history prior to this injury. The patient has prior psychiatric difficulties of depression, as described above. Substance abuse history is unremarkable. Behavioral Reactions of Patient and Family/Support System: Stable. The patient s family is experiencing ongoing issues of adjustment given the nature of the injury, and this aspect of recovery will require ongoing monitoring. Emotional/Behavioral Status of Patient and Family/Support System: Stable. Pertinent issues, if appropriate to this patients clinical care, are described in detail above. Maximizing Acute Care Outcome: It is recommended that the patient be monitored for emergent behavioral impulsivity as the medical condition evolves. This patients neuropathological challenges may limit rehabilitation potential going forward, and these challenges will require specialized therapeutic skills to maximize outcome. Additionally, the patients family is experiencing ongoing issues of adjustment given the traumatic nature of the injury, and they may benefit from ongoing psychological assistance. At this point in the recovery process, the patient does not have cognitive capacity as the patient is unable to understand a situation and its likely consequences, nor is the patient able to manipulate information rationally. Cognitive capacity will be assessed throughout the recovery process. Anticipated Problems: Ongoing areas of concern will include behavioral impulsivity, lack of insight and judgment, which is expected to improve with time and treatment. Treatment Plan: This clinician will continue to follow with you throughout the course of this patients critical care treatment, and I will be available to meet with the patients family/support system to facilitate their understanding and the ongoing care of their family member. The goals of neuropsychological intervention shall be both educational and supportive to the family/support system as is deemed clinically appropriate. [place] COG Scale: Level V Disinhibition Score: 24.50 Aggression Score: 35.00 Lability Score: 37.32 Agitated Behavior Total Score: 30 Impression: 68 year old male s/p TBI 2T fall on 06/04/2018 with likely underlying major neurocognitive disorder that predated this injury. Progress Note Narrative: PTD 4. The patient was an ICU border awaiting transfer to the floor. He has now become agitated, with recent ABS of 30 (24.5,35,37) although for the past three days he has been calm and non agitated. However, this is day 4, and a concern is alcohol withdrawal at this point in time. Consider reviewing OAWS administration (which was a 3 out of 5), and pharmacological management with VPA 750 BID for today and Valium 5 QID, with titration schedule for the next seven days. He is scheduled to transfer to [facility]. I discussed the titration schedule with Dr. Frederick. I will follow at [facility]. - Diagnosis (1) Mild major neurocognitive disorder as late effect of traumatic brain injury without behavioral disturbance Status: Acute
[2018-06-08] MEDS ORDERED: fentaNYL Citrate Inj 100 MCG/2 ML Ampul ONE (09:02)
[2018-06-08] MEDS: Docusate Sodium 100 MG Capsule PO SCH (09:34)
[2018-06-08] MEDS: Furosemide 20 MG Tablet PO SCH (09:34)
[2018-06-08] MEDS: Timolol 0.5% Drops 5 ML Bottle EACH EYE SCH (09:35)
[2018-06-08] MEDS: Carvedilol 12.5 MG Tablet PO SCH (09:35)
[2018-06-08] MEDS: Brimonidine 0.2% Opth Drops 5 ML Bottle EACH EYE SCH (09:35)
[2018-06-08] MEDS: Lacosamide 100 MG Tablet PO SCH (09:35)
[2018-06-08] MEDS ORDERED: fentaNYL Citrate Inj 100 MCG/2 ML Ampul IV.PUSH ONE (11:15)
--- NOTE | 2018-06-08 11:50 | P.PNNS ---
Subjective Interval history: Pt awake and alert. Denies headache, nausea or vomiting. He just underwent a loop recorder placement. Physical Exam Vital signs: Vital Signs 06/07/18 12:00 06/07/18 14:00 06/07/18 16:00 Temperature 98.1 F 98.2 F Pulse Rate 56 L 64 Respiratory Rate 20 15 Blood Pressure 128/71 148/70 H Pulse Oximetry 99 99 100 06/07/18 19:51 06/07/18 20:00 06/08/18 00:00 Temperature 97.9 F 98 F Pulse Rate 70 73 Respiratory Rate 16 24 Blood Pressure 179/80 H 143/63 H Pulse Oximetry 100 100 100 06/08/18 04:00 06/08/18 07:58 06/08/18 08:00 Temperature 98.1 F 98.4 F Pulse Rate 70 82 Respiratory Rate 20 18 Blood Pressure 127/67 121/91 H Pulse Oximetry 96 100 98 06/08/18 08:14 Temperature Pulse Rate 82 Respiratory Rate Blood Pressure Pulse Oximetry Intake & Output 06/07/18 06/08/18 06/08/18 18:59 06:59 18:59 Intake Total 250 / 250 Output Total 530 / 530 600 / 600 Balance -280 / -280 -600 / -600 Weight 116.8 kg Intake: Oral 250 / 250 Output: Urine 530 / 530 600 / 600 Other: # Voids 5 4 Date of Last Bowel Movement 06/07/18 06/07/18 06/07/18 - Constitutional no acute distress, average body habitus, cooperative - Routine HEENT Exam Head: Present: normocephalic, atraumatic Eye: Present: PERRL (Pupils 3mm bilaterally reactive bilaterally.). Absent: conjunctival icterus ENT: Present: oropharynx clear - Routine Respiratory Exam Present: CTA bilaterally. Absent: respiratory distress, rhonchi, wheezes - Routine Cardiovascular Exam Present: RRR, S1, S2. Absent: murmur - Routine Abdominal Exam Present: soft, normoactive bowel sounds. Absent: firm - Routine Skin Exam Absent: cyanosis, erythema - Routine Neurological Exam Present: alert, altered mental status (mildly confused.), moving all extremities. Absent: motor deficit - Detailed Neurological Exam: Coma Scale Eye Opening: Spontaneous Verbal Response: Confused Motor Response: Obey commands [place] Coma Scale Total: 14 - Routine Psychiatric Exam Present: normal affect, cooperative. Absent: anxious, agitated - Urinary Catheter Management Indwelling Urethral Catheter Cath placed during this visit: no Assessment and Plan - Assessment (1) Intracranial hemorrhage Code(s): I62.9 - Nontraumatic intracranial hemorrhage, unspecified Status: Acute (2) Blunt trauma of face Code(s): S09.93XA - Unspecified injury of face, initial encounter Status: Acute Qualifiers: Encounter type: initial encounter Qualified Code(s): S09.93XA - Unspecified injury of face, initial encounter (3) Hypertension, uncontrolled Code(s): I10 - Essential (primary) hypertension Status: Acute (4) Mild major neurocognitive disorder as late effect of traumatic brain injury without behavioral disturbance Code(s): S06.9X9S - Unspecified intracranial injury with loss of consciousness of unspecified duration, sequela; F02.80 - Dementia in other diseases classified elsewhere without behavioral disturbance Status: Acute (5) Syncope and collapse Code(s): R55 - Syncope and collapse Status: Acute - Plan Imaging: Ct head consistent with left sided small 5 mm acute SDH with multiple small foci of intraparenchymal hemorrhage/contusions mostly to the right frontal lobe A/P: 68 yo M on pradaxa s/p fall with IPH/contusions/SDH (06/04) -pradaxa reversed -repeat CT's 06/05 (cp admit 06/04) show expected evolution of frontal contusions- - all small and stable - no neurosurgical intervention -recommend q2 hr neuro checks with close monitoring -Keep SBP less than 160 -Keppra for 7 days for seizure prophylaxis -PT/OT mobilize, activity as tolerated (up to chair) -- can transfer to floor -syncope workup. Pt had loop recorder placed on 06/08. Pt seen and examined in conjunction with Dr. Bowers and note written on his behalf.
[2018-06-08 11:54] VITALS: BP 170/81; PULSE 81; TEMP 99.7; O2SAT 100
[2018-06-08] MEDS ORDERED: ceFAZolin 2 GM Premix Inj 2 GM/50 ML PIGGYBACK IV.SIG ONE (12:00)
--- NOTE | 2018-06-08 12:09 | P.PNCA ---
Subjective Interval history: No complaints today Minimal confusion Loop recorder placed today Blood pressure mildly elevated, but per the nurse when cuff goes up he flexes, but when relaxed blood pressure normal Physical Exam Vital signs: Vital Signs 06/07/18 14:00 06/07/18 16:00 06/07/18 19:51 Temperature 98.2 F Pulse Rate 64 Respiratory Rate 15 Blood Pressure 148/70 H Pulse Oximetry 99 100 100 06/07/18 20:00 06/08/18 00:00 06/08/18 04:00 Temperature 97.9 F 98 F 98.1 F Pulse Rate 70 73 70 Respiratory Rate 16 24 20 Blood Pressure 179/80 H 143/63 H 127/67 Pulse Oximetry 100 100 96 06/08/18 07:58 06/08/18 08:00 06/08/18 08:14 Temperature 98.4 F Pulse Rate 82 82 Respiratory Rate 18 Blood Pressure 121/91 H Pulse Oximetry 100 98 06/08/18 11:53 Temperature 99.7 F H Pulse Rate 81 Respiratory Rate 18 Blood Pressure 170/81 H Pulse Oximetry 100 Intake & Output 06/07/18 06/08/18 06/08/18 18:59 06:59 18:59 Intake Total 250 / 250 Output Total 530 / 530 600 / 600 Balance -280 / -280 -600 / -600 Weight 116.8 kg Intake: Oral 250 / 250 Output: Urine 530 / 530 600 / 600 Other: # Voids 5 4 Date of Last Bowel Movement 06/07/18 06/07/18 06/07/18 Narrative: GENERAL: NAD SKIN: Warm and dry. HEAD: Normocephalic. Abrasion noted EYES: Pupils equal and round. No scleral icterus. No injection or drainage. ENT: No nasal bleeding or discharge. Mucous membranes pink and moist. NECK: Trachea midline. No JVD. CARDIOVASCULAR: Regular rate and rhythm. RESPIRATORY: No accessory muscle use. Decreased breath sounds bilaterally GASTROINTESTINAL: Abdomen soft, non-tender, nondistended. Hepatic and splenic margins not palpable. MUSCULOSKELETAL: Extremities without clubbing, cyanosis, or edema. No obvious deformities. NEUROLOGICAL: Awake and alert. No obvious cranial nerve deficits. Motor grossly within normal limits. Five out of 5 muscle strength in the arms and legs. - Urinary Catheter Management Indwelling Urethral Catheter Cath placed during this visit: no Assessment and Plan - Assessment (1) Syncope and collapse Code(s): R55 - Syncope and collapse Status: Acute (2) Intracranial hemorrhage Code(s): I62.9 - Nontraumatic intracranial hemorrhage, unspecified Status: Acute (3) Blunt trauma of face Code(s): S09.93XA - Unspecified injury of face, initial encounter Status: Acute (4) Hypertension, uncontrolled Code(s): I10 - Essential (primary) hypertension Status: Acute (5) Mild major neurocognitive disorder as late effect of traumatic brain injury without behavioral disturbance Code(s): S06.9X9S - Unspecified intracranial injury with loss of consciousness of unspecified duration, sequela; F02.80 - Dementia in other diseases classified elsewhere without behavioral disturbance Status: Acute - Plan 1) Syncopal episode Per Swati, patient's friend who was with him, he appeared to have a true syncopal episode No other causes noted Per Swati, he's fallen multiple times over the past few weeks Unfortunately loop recorder battery is done Loop recorder placed 2) Intracranial hemorrhage Hold Pradaxa Would plan to stop Pradaxa due to multiple falls Consideration of ASA 81mg daily when ok with trauma due to history of CAD, CVA, Afib and PAD 3) Echo showing no cause for syncope Carotid negative for significant disease 4) HTN Would avoid Clonidine if possible as difficult hr consultant Started on Nifedipine 10mg TID If BP stable, then discharge on long acting 5) Upon discharge will follow up with Dr. Syed Benítez, his strap maker (3) Blunt trauma of face Qualifiers: Encounter type: initial encounter Qualified Code(s): S09.93XA - Unspecified injury of face, initial encounter
[2018-06-08] MEDS ORDERED: diazePAM 5 MG Tablet PO SCH (13:00)
--- NOTE | 2018-06-08 17:01 | P.PNIM ---
Subjective Interval history: Discussed with RN. Patient is doing okay. Blood pressure is stable. Does have periods of confusions. Physical Exam Vital signs: Vital Signs 06/07/18 19:51 06/07/18 20:00 06/08/18 00:00 Temperature 97.9 F 98 F Pulse Rate 70 73 Respiratory Rate 16 24 Blood Pressure 179/80 H 143/63 H Pulse Oximetry 100 100 100 06/08/18 04:00 06/08/18 07:58 06/08/18 08:00 Temperature 98.1 F 98.4 F Pulse Rate 70 82 Respiratory Rate 20 18 Blood Pressure 127/67 121/91 H Pulse Oximetry 96 100 98 06/08/18 08:14 06/08/18 11:53 Temperature 99.7 F H Pulse Rate 82 81 Respiratory Rate 18 Blood Pressure 170/81 H Pulse Oximetry 100 Intake & Output 06/07/18 06/08/18 06/08/18 18:59 06:59 18:59 Intake Total 250 / 250 50 / 50 Output Total 530 / 530 600 / 600 Balance -280 / -280 -600 / -600 50 / 50 Weight 116.8 kg Intake: IV 50 / 50 Ancef 2 GM Premix Inj 2 gm In 50 / 50 50 ml @ 50 mls/hr IV.SIG NOW ONE Rx#:[id number] Oral 250 / 250 Output: Urine 530 / 530 600 / 600 Other: # Voids 5 4 Date of Last Bowel Movement 06/07/18 06/07/18 06/07/18 Narrative: GENERAL: This is a well-nourished, well-developed patient, in no apparent distress. CARDIOVASCULAR: Normal rate and regular rhythm without murmurs, gallops, or rubs. RESPIRATORY: Good respiratory efforts. Breath sounds equal and clear to auscultation bilaterally. GASTROINTESTINAL: Abdomen soft, non-tender, non-distended. Normal active bowel sounds MUSCULOSKELETAL: Extremities without cyanosis, or edema. NEURO: Alert & Oriented to self and place. Moves all extremities. PSYCH: Appropriate mood and affect. - Urinary Catheter Management Indwelling Urethral Catheter Cath placed during this visit: no Results - Labs CBC & Chem 7: 06/08/18 03:25 06/08/18 03:25 Laboratory Results - last 24 hr 06/07/18 06/07/18 06/08/18 03:07 17:51 00:07 WBC RBC Hgb Hct MCV MCH MCHC RDW Plt Count MPV Neut % (Auto) Lymph % (Auto) Dawson % (Auto) Eos % (Auto) Baso % (Auto) Neut # (Auto) Lymph # (Auto) Dawson # (Auto) Eos # (Auto) Baso # (Auto) WBC Differential Differential Comment Sodium Potassium Chloride Carbon Dioxide Anion Gap BUN Creatinine Estimated GFR POC Glucose 235 H 274 H Random Glucose Calcium Magnesium 1.9 Total Bilirubin AST ALT Alkaline Phosphatase Total Protein Albumin 06/08/18 06/08/18 06/08/18 03:25 03:25 05:46 WBC 7.1 RBC 3.89 L Hgb 11.6 L Hct 35.6 L MCV 91.4 MCH 29.7 MCHC 32.5 RDW 15.3 Plt Count 194 MPV 8.3 Neut % (Auto) 80.1 H Lymph % (Auto) 9.9 Dawson % (Auto) 7.9 Eos % (Auto) 1.7 Baso % (Auto) 0.4 Neut # (Auto) 5.7 Lymph # (Auto) 0.7 L Dawson # (Auto) 0.6 Eos # (Auto) 0.1 Baso # (Auto) 0.0 WBC Differential . Differential Comment Auto diff final Sodium 141 Potassium 3.7 Chloride 111 H Carbon Dioxide 20.7 L Anion Gap 9 BUN 18 Creatinine 1.10 Estimated GFR 66 L POC Glucose 202 H Random Glucose 206 H Calcium 8.9 Magnesium Total Bilirubin 0.5 AST 12 L ALT 12 Alkaline Phosphatase 71 Total Protein 7.2 Albumin 2.7 L 06/08/18 11:43 WBC RBC Hgb Hct MCV MCH MCHC RDW Plt Count MPV Neut % (Auto) Lymph % (Auto) Dawson % (Auto) Eos % (Auto) Baso % (Auto) Neut # (Auto) Lymph # (Auto) Dawson # (Auto) Eos # (Auto) Baso # (Auto) WBC Differential Differential Comment Sodium Potassium Chloride Carbon Dioxide Anion Gap BUN Creatinine Estimated GFR POC Glucose 200 H Random Glucose Calcium Magnesium Total Bilirubin AST ALT Alkaline Phosphatase Total Protein Albumin Assessment and Plan - Plan 68-year-old male with: Intracranial hemorrhage and subdural hematoma: - Patient status post fall. He has been on Pradaxa. Status post reversal with proximal bend. - Pradaxa has since been discontinued. Agree with cardiology to consider aspirin when okay with the trauma service given he is significant history of CAD , prior CVA, and A. fib. - Continue PT/OT Hypertension: Status post Cardapolonia drip. - Patient started on nifedipine 10 mg 3 times daily. Continue Coreg, Lasix, losartan. -Discussed with RN. Blood pressure better controlled. Continue to monitor and adjust antihypertensives as needed. Syncope: Frequent falls - Unclear if cardiac in origin. Patient has had frequent falls. Appreciate cardiology following. Patient had a loop recorder but the battery ran out. -Patient status post loop recorder today. He is doing well postop. 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 Rendon. Dementia: Continue Sinemet Diabetes: Continue home medications and insulin. GI prophylaxis: Stool softener PRN constipation. DVT PPx: SCDs. Chemoprophylaxis contraindicated due to ICH. Plan for transfer to [place] today.
--- NOTE | 2018-06-08 18:13 | P.DS ---
Date of admission: 06/04/18 17:57 Primary care physician: UNKNOWN Brief History from admission: S/P fall DS: Diagnosis - Discharge Diagnosis (1) Fracture of thumb, left, closed Status: Acute (2) Intracranial hemorrhage Status: Acute (3) Hypertension, uncontrolled Status: Acute (4) Syncope and collapse Status: Acute DS: Medications - Discharge Medications Prescriptions: aspirin [Adult Low Dose Aspirin] 81 mg PO DAILY #30 tab DS: Summary Hospital Course: 06/05/2018 Unfortunate gentleman who fell at home sustained the right frontal and left parietal contusions with some left subarachnoid hemorrhage In addition patient has chronic A. fib or junctional rhythm controlled by calcium channel blockers and beta blockers Was on Pradaxa and this was reversed with Praxabind. Patient is awake alert but disoriented in time space and person Apparently prior to this he had some degree of dementia Motorically patient is fully intact has full strength in lower and upper extremities and is trying fairly aggressively to get out of bed Repeat CT scan pending Hemodynamically stable with junctional controlled rhythm Hypertensive had to be placed on nicardipine drip. Keep pressure under 160 mmHg Reinstitute all his antihypertensives from home and probably will place patient on small dose Catapres in order to wean the nicardipine Bilateral breath sounds good pulmonary excursion however patient has been in bed and it is coughing up copious secretions Abdomen soft will restart on diet after evaluation by speech therapy Plan Control of hemodynamic values including cardiac rhythm and blood pressure Out of bed aggressive pulmonary toilet Aggressive PT OT Placement in next 24-40 hours will be necessary 06/06/2018 Patient is awake and alert slightly sedated and confused with some pre-existing degree of dementia Repeat CT scan of the brain reveals progression of bilateral frontal and parietal contusions resolution of subarachnoid hemorrhage Hemodynamically stable and quite hypertensive Nicardipine drip has been removed and patient remains on Catapres patch/losartan /carvedilol Cardiology help and expertise greatly appreciated Copious thick secretions Out of bed Transfer to floor and to rehab when bed available 06/07/2018 Awake alert oriented and pleasantly confused Neurologically motorically and sensory intact Hypertension now controlled and patient is off all drips tolerating p.o. meds Transfer to floor when bed available. 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 Transfer to rehab facility when bed available INJURIES: LEFT tempoparietal SDH RIGHT frontal contusions LEFT thumb fx (non-op) ?LEFT 4th finger fx (non-op) PMHx: DM. HTN. HLD. Afib. Sick sinus sx. CAD. CVA. TIA. GERD. Glaucoma. MRSA. PAD. Seizures. Sleep Apnea. Fell 10 times in last week. LEFT tempoparietal SDH, RIGHT frontal contusions Neurosurgery consulted, F/U outpatient Supportive care Repeat CT Brain shows evolving contusions and resolution of SAH Neuropsychology consulted Added VPA 750mg BID, Valium 5mg PO QID Rehab placement Lovenox 40 QD LEFT thumb fx, ?LEFT 4th finger fx Hand sx consulted Non-op Pain control F/U outpatient DM Resume home insulin ADA diet Syncope, SSS, HTN Cardiology consulted, F/U outpatient Loop recorder battery done Echo: EF 55-60%, no cause for syncope 06/08: Loop recorder replaced ASA 81mg QD DC home Pradaxa Procardia, Nitro patch, Coreg, Losartan F/U with PCP in 1 week Plan of care discussed with patient and MARGARINE MAKER at bedside. Collaborating Trauma MD agrees with plan. Case management consulted to assist with discharge planning. Patient is clear from Trauma surgery to safely discharge to inpatient rehab. - Time Spent with Patient Total time spent providing and/or coordinating discharge services: Greater than 30 minutes - Quality: VTE Deep Vein Thrombosis/Pulmonary Embolism Present on Admission: No Exam Vital signs: Vital Signs 06/07/18 19:51 06/07/18 20:00 06/08/18 00:00 Temperature 97.9 F 98 F Pulse Rate 70 73 Respiratory Rate 16 24 Blood Pressure 179/80 H 143/63 H Pulse Oximetry 100 100 100 06/08/18 04:00 06/08/18 07:58 06/08/18 08:00 Temperature 98.1 F 98.4 F Pulse Rate 70 82 Respiratory Rate 20 18 Blood Pressure 127/67 121/91 H Pulse Oximetry 96 100 98 06/08/18 08:14 06/08/18 11:53 Temperature 99.7 F H Pulse Rate 82 81 Respiratory Rate 18 Blood Pressure 170/81 H Pulse Oximetry 100 Intake & Output 06/07/18 06/08/18 06/08/18 18:59 06:59 18:59 Intake Total 250 / 250 50 / 50 Output Total 530 / 530 600 / 600 Balance -280 / -280 -600 / -600 50 / 50 Weight 116.8 kg Intake: IV 50 / 50 Ancef 2 GM Premix Inj 2 gm In 50 / 50 50 ml @ 50 mls/hr IV.SIG NOW ONE Rx#:[id number] Oral 250 / 250 Output: Urine 530 / 530 600 / 600 Other: # Voids 5 4 Date of Last Bowel Movement 06/07/18 06/07/18 06/07/18 Narrative: GENERAL: 68 year old well-nourished male lying in bed, restless. SKIN: Warm and dry. HEAD:Normocephalic. ENT: No nasal bleeding or discharge. Mucous membranes pink and moist. NECK: Trachea midline. No JVD. CARDIOVASCULAR: Regular rate and rhythm. RESPIRATORY: No accessory muscle use. Clear to auscultation. Breath sounds equal bilaterally. GASTROINTESTINAL: Abdomen soft, non-tender, nondistended. + BS MUSCULOSKELETAL: Extremities without cyanosis, or edema. MAEW, + perfused NEUROLOGICAL: Awake and disoriented. Normal speech. Results Procedures completed during hospitalization: 06/08: Loop recorder replaced Labs on day of discharge: Labs from last 24 hours 06/08/18 06/08/18 06/08/18 11:43 05:46 03:25 WBC RBC Hgb Hct MCV MCH MCHC RDW Plt Count MPV Neut % (Auto) Lymph % (Auto) [place] % (Auto) Eos % (Auto) Baso % (Auto) Neut # (Auto) Lymph # (Auto) [place] # (Auto) Eos # (Auto) Baso # (Auto) WBC Differential Differential Comment Sodium 141 Potassium 3.7 Chloride 111 H Carbon Dioxide 20.7 L Anion Gap 9 BUN 18 Creatinine 1.10 Estimated GFR 66 L POC Glucose 200 H 202 H Random Glucose 206 H Calcium 8.9 Magnesium Total Bilirubin 0.5 AST 12 L ALT 12 Alkaline Phosphatase 71 Total Protein 7.2 Albumin 2.7 L 06/08/18 06/08/18 06/07/18 03:25 00:07 03:07 WBC 7.1 RBC 3.89 L Hgb 11.6 L Hct 35.6 L MCV 91.4 MCH 29.7 MCHC 32.5 RDW 15.3 Plt Count 194 MPV 8.3 Neut % (Auto) 80.1 H Lymph % (Auto) 9.9 [place] % (Auto) 7.9 Eos % (Auto) 1.7 Baso % (Auto) 0.4 Neut # (Auto) 5.7 Lymph # (Auto) 0.7 L [place] # (Auto) 0.6 Eos # (Auto) 0.1 Baso # (Auto) 0.0 WBC Differential . Differential Comment Auto diff final Sodium Potassium Chloride Carbon Dioxide Anion Gap BUN Creatinine Estimated GFR POC Glucose 274 H Random Glucose Calcium Magnesium 1.9 Total Bilirubin AST ALT Alkaline Phosphatase Total Protein Albumin - Impressions ITS Impressions Carotid Doppler Study 06/04/18 00:00 CONCLUSION: 1. Right Internal Carotid Artery: Mild atherosclerotic plaque with less than 50 % diameter stenosis. 2. Left Internal Carotid Artery: Mild atherosclerotic plaque with less than diameter stenosis. 3. Nonvisualization of the right vertebral artery. Occlusion is not excluded. Chest X-Ray 06/04/18 17:33 CONCLUSION: Mild cardiomegaly and mild streaky perihilar opacities which could represent possible early pulmonary edema. Hand X-Ray 06/05/18 00:00 CONCLUSION: 1. No acute fracture or malalignment. 2. Fracture deformity involving the base of the fourth middle phalanx. 3. Osteopenia and osteoarthritic change. Humerus X-Ray 06/05/18 00:00 CONCLUSION: Negative exam with no acute fracture. Shoulder X-Ray 06/05/18 00:00 CONCLUSION: No acute fracture or malalignment. Degenerative changes are present in the acromioclavicular joint. Head CT 06/05/18 08:14 CONCLUSION: 1. Increasing conspicuity and size of multiple small hemorrhages along the mcnally -white junction of the right frontal and parietal lobes without evidence of increasing mass effect or edema. Findings are characteristic of white matter shear injury. 2. Decreasing density of small left cerebral subdural hematoma which is otherwise stable without evidence of interval enlargement or mass effect. 3. Stable old bilateral occipital infarcts and right cerebellar infarct. . Discharge Plan - Discharge Disposition Patient Disposition: [facility] Rehab Inpatient - Discharge Condition Condition: Stable - Discharge Order Discharge Orders: Discharge Order (Routine); Ordered 06/08/18 Ordered By: Desiree Shoemaker - Physicians Team Primary Care Provider: UNKNOWN, Attending Provider: Ta Talavera Other Providers: Joel Bush MD ; Preston Serrano MD ; Magdaleno Sarkar MD ; [employer] [facility] ; Ta Talavera MD ; Fadia Mosley ARNP ; Jasiel Duran MD ; Hedy Menezes MD ; Desiree Shoemaker ARNP ; Kayden Crespo MD ; Vishnu Rendon, DO ; Hima Bergman, PhD ; Jena Gonzalez MD ; Aman Bowers MD ; Tayler Frederick MD ; Al Ba MD
--- NOTE | 2018-06-08 23:50 | MR ---
cc: Vishnu Rendon DO DATE: 06/08/2018 PROCEDURE: Implantation of a [employer] loop recorder (Model #[id number], Serial #[id number]). PREPROCEDURE DIAGNOSIS: Syncope. POSTPROCEDURE DIAGNOSIS: Status post loop recorder placement site, status post [employer] loop recorder placement. MEDICATIONS: Fentanyl 50 mcg, Ancef 2 grams. ESTIMATED BLOOD LOSS: Minimal. 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 He presented to [facility] after a syncopal event. He was standing up waiting for his friend to help him walk and he ended up passing out, falling forward and hitting his face. He has a previous loop recorder placed, but it is 4.5 years old, is no longer working. Because of his syncopal episode, it was felt that a loop recorder should be placed for evaluation for possible arrhythmia versus a significant bradycardia or AV rosa blocks. Risks, benefits and alternatives were discussed with him, as well as his power of disability attorney, and his power of disability attorney signed consent for the patient. The patient was prepped in the usual sterile fashion. Two grams of Ancef were given. Left anterior chest wall was anesthetized with lidocaine. A small incision was placed and loop recorder was then injected underneath the skin. Pressure was held for hemostasis. As his previous loop recorder is significantly lateral away from the area where we were placing as well as no complications with it, it was left in place. The patient tolerated the procedure well. HARDWARE: [employer] Confirm Rx loop recorder (Model #[id number], Serial #[id number]). R-wave 0.30 millivolts. SETTINGS: Bradycardia less than 40 beats per minute, tachycardia greater than 160 beats per minute, pause greater than 3 seconds. IMPRESSION: 1. A syncopal episode. 2. Intraoperative parenchymal hemorrhage on the right high frontal lobe with a small left subdural hematoma along the left parietal lobe. 3. History of atrial fibrillation. 4. History of cerebrovascular accident with left-sided vision loss. RECOMMENDATIONS: 1. Mr. Christopher presented with multiple syncopal episodes recently and unfortunately his loop recorder was placed 4.5 years ago and the battery is no longer working. 2. Because of this, a loop recorder was placed, and transmissions will go to Dr. Syed Benítez. 3. Further recommendations will be based on the hospital course. Thank you for allowing me to see Tyson Christopher. If there are any questions, please do not hesitate to call. DO MARY Montague/nicole , 10:51 PM , 11:00 PM [email or web address]
== END 2018-06-08 13:30 ==
LOC: NEPC 17:03 → NEDA 17:57 → N03 19:22
PROVIDERS: ADMIT Surgery; ATTEND Surgery